=== PATIENT | male | born 1960 | race Caucasian/White ===

== ENCOUNTER 2016-06-03 11:34 | Emergency (ER) | payer BC, OTHER ==
--- NOTE | 2016-06-03 11:48 | ED ---
General Adult HPI - General Chief complaint: Chest Pain Stated complaint: CHEST PAIN Time Seen by Provider: 06/03/16 11:46 Source: patient, family, RN notes reviewed, old records reviewed Mode of arrival: wheelchair Limitations: no limitations - History of Present Illness Initial comments: This is a 48-year-old male ER for evaluation. Patient Preoperative for evaluation of chest pain. Patient had anterior chest pain is not severe while doing some activities morning at work. Patient does suffer from CAD with history of stent. No prior hospital recent hospital admissions for chest pain, rule out 5 AM patient was doing some work today and moving some objects and had anterior chest pain. Patient became a little short of breath but nothing significant. He was advised to see the medical nurse at his work, was then transferred to his family doctor's office and transferred to the emergency room. Patient states he is without chest pain at this time he did take nitro hours ago which did help and he has been chest pain-free since. Patient has no cough congestion or fever no travel history. - Related Data Home Medications Medication Instructions Recorded Confirmed Hydrocodone/Acetaminophen [[place] 1 tab PO Q4H PRN 09/06/14 06/03/16 10-325] Nitroglycerin Sl Tabs [Nitrostat] 0.4 mg SUBLINGUAL Q5M PRN 09/06/14 06/03/16 Atorvastatin [Lipitor] 80 mg PO DAILY 09/12/14 06/03/16 Aspirin EC [Ecotrin Low Dose] 81 mg PO DAILY 11/12/15 06/03/16 Butalb/APAP/Caff 50-325-40Mg 2 tab PO BID PRN 11/12/15 06/03/16 [Fioricet 50-325-40] Cyanocobalamin [Vitamin B-12] 500 mcg PO DAILY 11/12/15 06/03/16 Ferrous Sulfate [Iron (65 MG 325 mg PO DAILY 11/12/15 06/03/16 Elemental)] Cholecalciferol [Vitamin D3] 1,000 unit PO DAILY 02/24/16 06/03/16 predniSONE See Taper PO DIRECTED 02/24/16 06/03/16 Albuterol Sulfate [Proair Hfa] 1 - 2 puff INHALATION RT-Q6H PRN 06/03/16 Fluocinonide 0.05% [Fluocinonide] 1 applic TOPICAL BID 06/03/16 06/03/16 Levocetirizine Dihydrochloride 5 mg PO DAILY PRN 06/03/16 06/03/16 [Xyzal] Naproxen [Naprosyn] 500 mg PO TID PRN 06/03/16 06/03/16 Triamcinolone 0.1% Cream [Kenalog] 1 applic TOPICAL BID 06/03/16 06/03/16 diphenhydrAMINE [Benadryl] 25 mg PO BID PRN 06/03/16 06/03/16 Previous Rx's Medication Instructions Recorded Lisinopril [Zestril] 10 mg PO DAILY #30 tab 11/13/15 Allergies Allergy/AdvReac Type Severity Reaction Status Date / Time No Known Allergies Allergy Verified 11/12/15 13:52 Review of Systems ROS Statement: Those systems with pertinent positive or pertinent negative responses have been documented in the HPI. ROS Other: All systems not noted in ROS Statement are negative. Past Medical History Past Medical History: Coronary Artery Disease (CAD), Chest Pain / Angina, Heart Failure, COPD, Hearing Disorder / Deafness, Hyperlipidemia, Hypertension, Myocardial Infarction ([place]), Neurologic Disorder, Respiratory Disorder, Rheumatoid Arthritis (RA), Skin Disorder, Sleep Apnea/CPAP/BIPAP Additional Past Medical History / Comment(s): closed head injury , migraines, PSORIASIS, Last Myocardial Infarction Date:: 09/06/2014 History of Any Multi-Drug Resistant Organisms: None Reported Past Surgical History: Heart Catheterization With Stent Additional Past Surgical History / Comment(s): HEART CATH WITH STENT TO LAD ON 09/06/2014 and had previous heart cath and stent not sure which artery. Past Anesthesia/Blood Transfusion Reactions: No Reported Reaction Date of Last Stent Placement:: 09/06/2014 Past Psychological History: No Psychological Hx Reported Smoking Status: Never smoker Past Alcohol Use History: None Reported Additional Past Alcohol Use History / Comment(s): DENIES ALCOHOL USE Past Drug Use History: None Reported Additional Drug Use History / Comment(s): DENIES STREEET DRUGS, DOES CHEW CHEWING TOBACCO 1/2 can per day - Past Family History Brother(s) Family Medical History: Coronary Artery Disease (CAD), Myocardial Infarction ([place] ) Additional Family Medical History / Comment(s): HALF BROTHER HAD A [place] General Exam Limitations: no limitations General appearance: alert, in no apparent distress Head exam: Present: atraumatic, normocephalic, normal inspection Eye exam: Present: normal appearance, PERRL, EOMI. Absent: scleral icterus, conjunctival injection, periorbital swelling ENT exam: Present: normal exam, mucous membranes moist Neck exam: Present: normal inspection. Absent: tenderness, meningismus, lymphadenopathy Respiratory exam: Present: normal lung sounds bilaterally. Absent: respiratory distress, wheezes, rales, rhonchi, stridor Cardiovascular Exam: Present: regular rate, normal rhythm, normal heart sounds. Absent: systolic murmur, diastolic murmur, rubs, gallop, clicks GI/Abdominal exam: Present: soft, normal bowel sounds. Absent: distended, tenderness, guarding, rebound, rigid Extremities exam: Present: normal inspection, full ROM, normal capillary refill. Absent: tenderness, pedal edema, joint swelling, calf tenderness Back exam: Present: normal inspection Neurological exam: Present: alert, oriented X3, CN II-XII intact Psychiatric exam: Present: normal affect, normal mood Skin exam: Present: warm, dry, intact, normal color. Absent: rash Course Vital Signs 06/03/16 11:36 Temperature 98 F Pulse Rate 72 Respiratory 16 Rate Blood Pressure 146/70 - Reevaluation(s) Reevaluation #1: 06/03/16 12:51 The patient remains without chest pain Reevaluation #2: 06/03/16 12:51 Patient is defiantly apposed his stay in the hospital 06/03/16 12:51 EKG Findings - EKG Comments: EKG Findings:: EKG shows normal sinus rhythm rate of 65, FL 184, QRS 88, QTC 416 Medical Decision Making - Medical Decision Making 56 male here for evaluation of chest pain. Patient presents with chest pain today, he does have history of CAD and angina. Patient's chest pain is now resolved. Patient refuses to stay in the hospital for further cardiac care. Patient will be discharged home he does take [place] - Radiology Data Radiology results: report reviewed (Chest x-ray negative for acute disease), image reviewed Disposition Clinical Impression: CAD (coronary artery disease), Unstable angina pectoris, Stable angina Disposition: HOME SELF-CARE Condition: Good Instructions: Chest Pain (ED) Referrals: Cali Crain MD [Primary Care Provider] - 1-2 days
[2016-06-03 12:50] LABS: Basophils % (A) 0 %; CH 32.3; CHCM 34.4; Eosinophils # (A) 0.2 k/uL (0-0.7); Eosinophils % (A) 2 %; HCT 41.4 % (39.0-53.0); HDW 2.37; HGB 13.8 gm/dL (13.0-17.5); Luc # (Auto) 0.32; Luc % (Auto) 3; Lymphocytes # (A) 1.8 k/uL (1.0-4.8); Lymphocytes % (A) 19 %; MCH 31.4 pg (25.0-35.0); MCHC 33.3 g/dL (31.0-37.0); MCV 94.3 fL (80.0-100.0); Monocytes # (A) 0.7 k/uL (0-1.0); Monocytes % (A) 7 %; Neutrophils # (A) 6.7 k/uL (1.3-7.7); Neutrophils % (A) 68 %; RBC 4.39 m/uL (4.30-5.90); RDW 13.3 % (11.5-15.5); WBC 9.7 k/uL (3.8-10.6); WBC (Perox) 10.34
[2016-06-03 12:58] LABS: ALT 33 U/L (21-72); AST 20 U/L (17-59); Alkaline Phosphatase 74 U/L (38-126); Anion Gap 11 mmol/L; Blood Urea Nitrogen 25 mg/dL (9-20); Calcium 9.3 mg/dL (8.4-10.2); Carbon Dioxide 23 mmol/L (22-30); Chloride 107 mmol/L (98-107); Glucose 83 mg/dL (74-99); Magnesium 1.9 mg/dL (1.6-2.3); Non-African American GFR(MDRD) >60 (>60 ml/min/1.73 sqM); Potassium 4.3 mmol/L (3.5-5.1); Sodium 141 mmol/L (137-145); Total Bilirubin 0.9 mg/dL (0.2-1.3); Total Protein 6.4 g/dL (6.3-8.2)
[2016-06-03 13:03] LABS: Partial Thromboplastin Time 22.3 sec (22.0-30.0); Prothrombin Time 10.3 sec (9.0-12.0)
[2016-06-03 13:18] LABS: Creatine Kinase 60 U/L (55-170)
--- NOTE | 2016-06-03 13:31 | XR ---
EXAMINATION TYPE: XR chest 2V DATE OF EXAM: 06/03/2016 1:27 PM COMPARISON: 04/18/2016 HISTORY: Chest pain FINDINGS: The lungs are clear and there is no pneumothorax, pleural effusion, or focal pneumonia. Heart is en larged and there is hyperinflation. Degenerative change of the spine noted. IMPRESSION: 1. Cardiomegaly and findings suggestive of COPD.
[2016-06-03 13:32] LABS: Troponin I <0.012 ng/mL (0.000-0.034)
[2016-06-03 14:16] VITALS: BP 147/79; PULSE 60; RESP 18; TEMP 98
== END 2016-06-03 14:14 | disposition home or self-care (01) ==
LOC: EC 11:34
DX: I25.110 Atherosclerotic heart disease of native coronary artery with unstable angina pectoris (principal); I11.0 Hypertensive heart disease with heart failure; I50.9 Heart failure, unspecified; J44.9 Chronic obstructive pulmonary disease, unspecified; E78.5 Hyperlipidemia, unspecified; I25.2 Old myocardial infarction; M06.9 Rheumatoid arthritis, unspecified; G47.30 Sleep apnea, unspecified; H91.90 Unspecified hearing loss, unspecified ear; L40.9 Psoriasis, unspecified; F17.220 Nicotine dependence, chewing tobacco, uncomplicated; Z82.49 Family history of ischemic heart disease and other diseases of the circulatory system; Z79.52 Long term (current) use of systemic steroids; Z79.82 Long term (current) use of aspirin; Z79.899 Other long term (current) drug therapy
CPT/HCPCS: 36415; 71020; 80053; 82550; 82553; 83690; 83735; 83880; 84484; 85025; 85610; 85730; 93005; 99285

== ENCOUNTER → 2016-09-08 | Outpatient (CLI) | payer BC, OTHER ==
--- NOTE | 2016-09-08 19:57 | CT ---
EXAMINATION TYPE: CT brain w con DATE OF EXAM: 09/08/2016 7:35 PM COMPARISON: NONE HISTORY: Headaches x 17 yrs after closed head injury. CT DLP: 1090.40 mGycm Automated exposure control for dose reduction was used. CONTRAST: CT scan of the head is performed with IV Contrast, patient injected with 100 mL of Omnipaque 300. FINDINGS: There is mucosal thickening in the ethmoid and right maxillary sinus. There is some mild cerebral cor tical atrophy. There is no mass effect nor midline shift. There is no sign of intracranial hemorrhage . I see no pathologic enhancement. Sella turcica is normal. The calvarium is intact. IMPRESSION: Ethmoid and right maxillary sinusitis. Otherwise negative exam.
== END | disposition home or self-care (01) ==
LOC: RADCTMAIN 19:06
PROVIDERS: ATTEND Family Medicine
DX: J32.0 Chronic maxillary sinusitis (principal); J32.2 Chronic ethmoidal sinusitis
CPT/HCPCS: 70460; Q9967

== ENCOUNTER → 2017-01-09 | Outpatient (CLI) | payer BC, OTHER ==
[2017-01-06 11:48] VITALS: BMI 45.6
[2017-01-09 14:02] VITALS: BP 158/95; PULSE 77; RESP 18
--- NOTE | 2017-01-09 14:24 | P.HPIM ---
History of Present Illness H&P Date: 01/09/17 Chief Complaint: neck pain and headaches This is a 56-year-old patient referred by Drs. Lucia and Paras for chronic headaches and occipital nerve blocks. Patient has been taking medications from primary care physician including [place] 10/325 up to six times per day with some relief. Patient denies adverse drug effects from medications. Patient also denies new-onset weakness, bowel/bladder incontinence, or any other signs or symptoms of cauda equina syndrome. There are no signs of acute intoxication, and no indications of medication diversion or overuse. Patient notes that pain worsens significantly with standing and movement of the neck and improves with rest, ice, and medication. Patient has used several types of medications for pain, including NSAIDS, OPIOIDS ([place]), TRAMADOL. Patient HAS NOT had surgery. Patient HAS NOT had injections previously. Patient HAS NOT had physical therapy recently. In addition to above, 13-point review of systems is also negative for chest pain , shortness of breath, changes in vision, changes in hearing, new onset weakness , abdominal pain, diarrhea, extreme fatigue, malaise, fever, skin changes, homicidal or suicidal ideation, or bowel or bladder incontinence. 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 Neuro: CN II-XII grossly intact, muscle strength lower extremities PRESERVED Past Medical History Past Medical History: Coronary Artery Disease (CAD), Chest Pain / Angina, Heart Failure, COPD, Hearing Disorder / Deafness, Hyperlipidemia, Hypertension, Myocardial Infarction ([place]), Neurologic Disorder, Respiratory Disorder, Rheumatoid Arthritis ([place]), Skin Disorder, Sleep Apnea/CPAP/BIPAP Additional Past Medical History / Comment(s): FELL OFF HOUSE WITH CLOSED HEAD INJURY (1999), MIGRAINE HEADACHES, PSORIASIS, MULTIPLE CERVICAL SPURS, DDD., HAYFEVER, Last Myocardial Infarction Date:: 10/2015 History of Any Multi-Drug Resistant Organisms: None Reported Past Surgical History: Heart Catheterization, Heart Catheterization With Stent Additional Past Surgical History / Comment(s): HEART CATH WITH STENT TO LAD ON 09/06/2014 and had previous heart cath and stent not sure which artery., HEART CATH (10/2015)., NOSE SURGERY. Past Anesthesia/Blood Transfusion Reactions: No Reported Reaction, Motion Sickness Date of Last Stent Placement:: 09/06/2014 Past Psychological History: No Psychological Hx Reported Smoking Status: Never smoker Past Alcohol Use History: None Reported Additional Past Alcohol Use History / Comment(s): CHEWS TOBACCO SINCE 16 YEARS OLD Past Drug Use History: None Reported Additional Drug Use History / Comment(s): DENIES STREEET DRUGS, DOES CHEW CHEWING TOBACCO 1/2 can per day - Past Family History Mother Family Medical History: Unable to Obtain Father Family Medical History: Unable to Obtain Brother(s) Family Medical History: Coronary Artery Disease (CAD), Myocardial Infarction ([place] ) Additional Family Medical History / Comment(s): HALF BROTHER HAD A [place] Medications and Allergies Home Medications Medication Instructions Recorded Confirmed Type Hydrocodone/Acetaminophen [[place] 1 tab PO Q4H PRN 09/06/14 01/06/17 History 10-325] Nitroglycerin Sl Tabs [Nitrostat] 0.4 mg SUBLINGUAL Q5M PRN 09/06/14 01/06/17 History Atorvastatin [Lipitor] 80 mg PO DAILY 09/12/14 01/06/17 History Aspirin EC [Ecotrin Low Dose] 81 mg PO HS 11/12/15 01/06/17 History Butalb/APAP/Caff 50-325-40Mg 2 tab PO BID PRN 11/12/15 01/06/17 History [Fioricet 50-325-40] Lisinopril [Zestril] 10 mg PO DAILY #30 tab 11/13/15 01/06/17 Rx Albuterol Sulfate [Proair Hfa] 1 - 2 puff INHALATION Q6HR PRN 06/03/16 01/06/17 History Levocetirizine Dihydrochloride 5 mg PO DAILY PRN 06/03/16 01/06/17 History [Xyzal] Triamcinolone 0.1% Cream [Kenalog] 1 applic TOPICAL BID 06/03/16 01/06/17 History diphenhydrAMINE [Benadryl] 25 mg PO BID PRN 06/03/16 01/06/17 History Clopidogrel [Plavix] 75 mg PO HS 01/06/17 01/06/17 History Ibuprofen 800 mg PO TID PRN 01/06/17 01/06/17 History Metoprolol Tartrate [Lopressor] 25 mg PO BID 01/06/17 01/06/17 History Allergies Allergy/AdvReac Type Severity Reaction Status Date / Time No Known Allergies Allergy Verified 01/09/17 13:48 Results Comments: CT brain with contrast dated 09/08/2016 demonstrates ethmoid and right maxillary sinusitis and is otherwise negative. Assessment and Plan (1) Occipital neuralgia Status: Chronic (2) Chronic pain Status: Chronic (3) Cervical spondylosis Status: Chronic Plan: 1. Explanation: Opioid and psychological risk scores were reviewed. Diagnoses , prognoses, and multiple treatment options including but not limited to physical therapy, interventional therapies, adjuvant medical therapies, narcotic medication therapies, and surgery were discussed with the patient and all questions were answered to the patient's satisfaction. 2. Opioid agreement: no opioids prescribed today 3. Counseling: The patient was counseled extensively on SMOKING CESSATION, BODY MASS INDEX, EXERCISE. Specifically, the patient was instructed regarding the importance of smoking cessation, weight control, and exercise in the context of both chronic pain and overall health. 4. Procedures: bilateral occipital nerve block if patient can come off Plavix for five days per Dr. Nunes 5. Consultations: none 6. Investigations: MRI cervical spine without contrast to eval cervical facets 7. Medications: none 8. Disposition: f/u for procedure as scheduled PQRS measures: 1-Patient's medications are documented in the chart. 2-Tobacco use is positive/negative, counseling given 3-Patient has not had a pneumococcal vaccine. 4-Advanced care planning discussed, patient unable to give. 5-Opioid contract signed with the patient. 6-Pain positive, follow-up visit or procedure scheduled 7-Patient's blood pressure measured and documented, and patient will follow up with the primary care due to hypertension. 8-Patient's weight was measured, and body mass index ABOVE the normal limits, and counseling was done. Patient instructed to follow up with PCP. 9-Patient WAS NOT identified as an unhealthy alcohol user. Time with Patient: Greater than 30
== END ==
LOC: PNWHC3 13:27
PROVIDERS: ATTEND Anesthesiology
DX: M54.81 Occipital neuralgia (principal); M47.812 Spondylosis without myelopathy or radiculopathy, cervical region; Z79.84 Long term (current) use of oral hypoglycemic drugs; I25.10 Atherosclerotic heart disease of native coronary artery without angina pectoris; I10 Essential (primary) hypertension; I25.2 Old myocardial infarction; Z79.899 Other long term (current) drug therapy; Z79.82 Long term (current) use of aspirin; Z79.891 Long term (current) use of opiate analgesic
CPT/HCPCS: 99211

== ENCOUNTER → 2017-01-17 | Outpatient (CLI) | payer BC, OTHER | LOC: RADMRIMAIN 18:51 | PROVIDERS: ATTEND Anesthesiology | DX: Z53.9 Procedure and treatment not carried out, unspecified reason (principal) ==

== ENCOUNTER → 2017-07-04 | Outpatient (CLI) | payer BC, OTHER ==
--- NOTE | 2017-07-04 16:27 | XR ---
EXAMINATION TYPE: XR chest 2V DATE OF EXAM: 07/04/2017 COMPARISON: Prior chest x-ray 06/03/2016 HISTORY: Chest pain TECHNIQUE: Frontal and lateral views of the chest are obtained. FINDINGS: There is no focal air space opacity, pleural effusion, or pneumothorax seen. The cardiac silhouette size is stable, borderline enlarged. The osseous structures are intact. Small metallic f oreign body noted in the anterior chest wall superimposed over the Pulmonary window on the frontal exam. IMPRESSION: No acute cardiopulmonary process.
== END | disposition home or self-care (01) ==
LOC: RADXRMAIN 16:06
PROVIDERS: ATTEND Physician Assistant
DX: J20.9 Acute bronchitis, unspecified (principal)
CPT/HCPCS: 71046

== ENCOUNTER 2017-08-07 08:32 | Emergency (ER) | payer BC, OTHER ==
[2017-08-07 08:39] VITALS: RESP 18
[2017-08-07] MEDS ORDERED: IBUPROFEN 600 MG TAB PO STA (08:49)
--- NOTE | 2017-08-07 08:51 | ED ---
Lower Extremity Injury HPI - General Chief Complaint: Extremity Injury, Lower Stated Complaint: Foot injury Time Seen by Provider: 08/07/17 08:40 Source: patient, RN notes reviewed, old records reviewed Mode of arrival: wheelchair Limitations: no limitations - History of Present Illness Initial Comments: this is a 57-year-old male presents emergency department today chief complaint of right ankle pain and swelling. 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 He reports that he missed a step and his family got caught on the edge of the step. He reports that he rolled his right ankle and foot. He complains of pain when he was walking. Difficulty to bear weight. He states he's had no previous ankle or foot injuries. Denies any other injuries related to the fall. No head or neck injuries. No upper extremity injuries or back pain. Patient denies any peripheral paresthesias. - Related Data Home Medications Medication Instructions Recorded Confirmed Hydrocodone/Acetaminophen [[place] 10 mg PO Q4H PRN 09/06/14 08/07/17 10-325] Nitroglycerin Sl Tabs [Nitrostat] 0.4 mg SUBLINGUAL Q5M PRN 09/06/14 08/07/17 Atorvastatin [Lipitor] 80 mg PO DAILY 09/12/14 08/07/17 Aspirin EC [Ecotrin Low Dose] 81 mg PO HS 11/12/15 08/07/17 Butalb/APAP/Caff 50-325-40Mg 2 tab PO BID PRN 11/12/15 08/07/17 [Fioricet 50-325-40] Levocetirizine Dihydrochloride 5 mg PO DAILY PRN 06/03/16 08/07/17 [Xyzal] diphenhydrAMINE [Benadryl] 25 mg PO BID PRN 06/03/16 08/07/17 Clopidogrel [Plavix] 75 mg PO HS 01/06/17 08/07/17 Ibuprofen 800 mg PO TID PRN 01/06/17 08/07/17 Metoprolol Tartrate [Lopressor] 25 mg PO BID 01/06/17 08/07/17 Lisinopril [Zestril] 10 mg PO DAILY 01/09/17 08/07/17 hydrOXYzine HCL [Atarax] 25 mg PO TID PRN 02/01/17 08/07/17 Triamcinolone 0.1% Cream [Kenalog] 1 applicate TOPICAL BID 02/06/17 08/07/17 Naproxen 500 mg PO BID PRN 02/28/17 08/07/17 Previous Rx's Medication Instructions Recorded Ibuprofen [Motrin] 600 mg PO Q8HR PRN #20 tab 08/07/17 Allergies Allergy/AdvReac Type Severity Reaction Status Date / Time No Known Allergies Allergy Verified 08/07/17 09:23 Review of Systems ROS Statement: Those systems with pertinent positive or pertinent negative responses have been documented in the HPI. ROS Other: All systems not noted in ROS Statement are negative. Past Medical History Past Medical History: Coronary Artery Disease (CAD), Chest Pain / Angina, Heart Failure, COPD, Hearing Disorder / Deafness, Hyperlipidemia, Hypertension, Myocardial Infarction ([place]), Neurologic Disorder, Respiratory Disorder, Rheumatoid Arthritis ([place]), Skin Disorder, Sleep Apnea/CPAP/BIPAP Additional Past Medical History / Comment(s): FELL OFF HOUSE WITH CLOSED HEAD INJURY (1999), MIGRAINE HEADACHES, PSORIASIS, MULTIPLE CERVICAL SPURS, DDD., HAYFEVER, Last Myocardial Infarction Date:: 10/2015 History of Any Multi-Drug Resistant Organisms: None Reported Past Surgical History: Heart Catheterization, Heart Catheterization With Stent Additional Past Surgical History / Comment(s): HEART CATH WITH STENT TO LAD ON 09/06/2014 and had previous heart cath and stent not sure which artery., HEART CATH (10/2015)., NOSE SURGERY. , PAIN CLINIC PROCEDURES. Past Anesthesia/Blood Transfusion Reactions: No Reported Reaction, Motion Sickness Date of Last Stent Placement:: 09/06/2014 Past Psychological History: No Psychological Hx Reported Smoking Status: Never smoker Past Alcohol Use History: None Reported Past Drug Use History: None Reported - Past Family History Mother Family Medical History: No Reported History Father Family Medical History: No Reported History Brother(s) Family Medical History: Coronary Artery Disease (CAD), Myocardial Infarction ([place] ) Additional Family Medical History / Comment(s): HALF BROTHER HAD A [place] General Exam - General Exam Comments Initial Comments: this is a 57-year-old male presents emergency department today. He doesn't appear to be in any acute distress. Limitations: no limitations General appearance: alert, in no apparent distress Head exam: Present: atraumatic, normocephalic, normal inspection Eye exam: Present: normal appearance, PERRL, EOMI. Absent: scleral icterus, conjunctival injection, periorbital swelling Respiratory exam: Present: normal lung sounds bilaterally. Absent: respiratory distress, wheezes, rales, rhonchi, stridor Cardiovascular Exam: Present: regular rate, normal rhythm, normal heart sounds. Absent: systolic murmur, diastolic murmur, rubs, gallop, clicks Extremities exam: Present: normal capillary refill. Absent: tenderness, pedal edema, joint swelling, calf tenderness Right Lower Leg exam: Present: normal inspection, full ROM Ankle exam: Present: tenderness, swelling (patient reports tenderness and swelling over the lateral malleolus.). Absent: normal inspection Foot/Toe exam: Present: normal inspection, full ROM, tenderness (plan tenderness over the heel.) Neurovascular tendon exam: Present: no vascular compromise Gait: observed and limited by pain Back exam: Present: normal inspection Neurological exam: Present: alert, oriented X3, CN II-XII intact Psychiatric exam: Present: normal affect, normal mood Course Vital Signs 08/07/17 08:36 Temperature 97.0 F L Pulse Rate 91 Respiratory 18 Rate Blood Pressure 139/67 O2 Sat by Pulse 98 Oximetry Procedures - Orthopedic Splinting/Casting Injury #1 Side: right Lower Extremity Injury Location: short leg Lower Extremity Immobilizer: posterior splint Other Orthopedic Equipment: crutches Medical Decision Making - Medical Decision Making 57-year-old sensory exam and chief complaint of right ankle pain and swelling. 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 Patient does have some tenderness and swelling over the lateral malleolus. Ice pack was applied and he'll receiving x-rays.patient's x-rays of the foot shows a questionable lucency over the calcaneus. Recommended computed tomography scan. There is no fracture noted in the ankle. Patient for this. We proceeded with computed tomography scan. CT shows lucency along the inferior calcaneus. Fracture would be difficult to exclude. This is an unusual site of the fracture given his mechanism of injury. Recommend follow-up. Patient will be placed on crutches and given a posterior splint. Advised follow-up with orthopedic. Will be discharged with anti-inflammatory medicine and pain medicine. Discussed rest, ice, and elevate the extremity. All questions were answered and return parameters were discussed. - Radiology Data Radiology results: report reviewed CT foot: Lucency along the inferior canthus confirm. Fractured be difficult to exclude although severe unusual site for fracture. Given patient's mechanism of injury. Follow-up form process. Asked reaction. MRI may be benefit has indicated. sutures the foot and ankle were completed.Linear lucency involving the inferior margin of the anterior calcaneus. Correlate for tenderness to exclude a hairline fracture. Possible tiny foreign body in the plantar surface of the foot near the head of the tarsals. Severe arthropathy noted. There is no definite acute fracture dislocation of the ankle. Symptoms persist follow-up study in 7-10 days Disposition Clinical Impression: Right ankle sprain, Right calcaneal fracture Disposition: HOME SELF-CARE Condition: Good Instructions: Ankle Sprain (ED) Additional Instructions: patient is remain in the splint. Rest, ice, and elevate extremity. Follow-up with sales and training specialist within the next 1-2 days. Ambulate with crutches. Take at home pain medicine and anti-inflammatory medicine. Prescriptions: Ibuprofen [Motrin] 600 mg PO Q8HR PRN #20 tab PRN Reason: Pain Referrals: Cali Crain MD [Primary Care Provider] - 1-2 days Eliu Campos MD [STAFF PHYSICIAN] - 1-2 days Time of Disposition: 10:38
--- NOTE | 2017-08-07 09:14 | XR ---
EXAMINATION TYPE: XR ankle complete RT DATE OF EXAM: 08/07/2017 COMPARISON: NONE HISTORY: Pain FINDINGS: Three views of the ankle demonstrate the ankle mortise to be intact and symmetric. The joint spaces are preserved. The osseous structures are intact. Diffuse soft tissue edema noted. Hypertrophic sheela nge involving the malleoli. Small spurs noted. Calcaneal spurs noted. Arthropathy of the tarsometatar kade junction. IMPRESSION: 1. No definite acute fracture or dislocation, if symptoms persist follow-up study in 7 to 10 days wou ld be suggested.
--- NOTE | 2017-08-07 09:16 | XR ---
EXAMINATION TYPE: XR foot complete RT DATE OF EXAM: 08/07/2017 COMPARISON: NONE HISTORY: Pain TECHNIQUE: Three views are submitted. FINDINGS: Hallux valgus deformity of the first digit with arthropathy and hypertrophic change involving the fir st MTP. Arthropathy of the PIP joints of all digits. There is significant arthropathy of the tarsomet atarsal junction which can be associated with gout. Calcaneal spurs noted. There is a thin radiopaque density or near the metatarsal head along the plant ar surface could be related to chronic foreign body. A linear lucency involving the inferior cortex o f the calcaneus. IMPRESSION: 1. Linear lucency involving the inferior margin of the anterior calcaneus. Correlate with point tende rness to exclude hairline fracture. Consider follow up CT scan. 2. Possible tiny foreign body along the plantar surface of the foot near the head of the metatarsals. 3. Severe arthropathy.
--- NOTE | 2017-08-07 10:28 | CT ---
EXAMINATION TYPE: CT foot RT wo con DATE OF EXAM: 08/07/2017 COMPARISON: Plain film same date HISTORY: Missed a step, twisted foot and ankle, trauma and pain CT DLP: 201.8 mGycm Automated exposure control for dose reduction was used. Helical acquisition obtained through the [employer] t foot and ankle. 3-dimensional reconstructions performed on an alternate workstation. FINDINGS: There is motion on the exam which could limit the evaluation. Extensive arthropathy changes are noted as on plain film. There is no evident dislocation. Enthesophy te present at the insertion of the Achilles tendon. There is a plantar calcaneal spur present. Lucenc y identified along the anterior inferior calcaneus is confirmed. No other evident fracture. Calcifica tion within the soft tissues corresponds to the finding noted on the lateral exam at the level of the head and metatarsals shows a benign appearance. IMPRESSION: LUCENCY ALONG THE INFERIOR CALCANEUS IS CONFIRMED, AND FRACTURE WOULD BE DIFFICULT TO EXCLUDE ALTHOUG H THIS WOULD BE AN UNUSUAL SITE OF FRACTURE GIVEN PATIENT'S MECHANISM OF INJURY. FOLLOW-UP COULD BE P ERFORMED TO ASSESS FOR PERIOSTEAL REACTION, MRI MAY BE OF BENEFIT INDICATED.
[2017-08-07 11:05] VITALS: BP 153/67; PULSE 69; TEMP 98
== END 2017-08-07 11:02 | disposition home or self-care (01) ==
LOC: EC 08:32
DX: S92.021A Displaced fracture of anterior process of right calcaneus, initial encounter for closed fracture (principal); S93.401A Sprain of unspecified ligament of right ankle, initial encounter; I25.119 Atherosclerotic heart disease of native coronary artery with unspecified angina pectoris; I11.0 Hypertensive heart disease with heart failure; I50.9 Heart failure, unspecified; J44.9 Chronic obstructive pulmonary disease, unspecified; E78.5 Hyperlipidemia, unspecified; I25.2 Old myocardial infarction; G47.30 Sleep apnea, unspecified; Z99.89 Dependence on other enabling machines and devices; Z79.82 Long term (current) use of aspirin; Z79.01 Long term (current) use of anticoagulants; Z79.899 Other long term (current) drug therapy; W17.89XA Other fall from one level to another, initial encounter; Y99.0 Civilian activity done for income or pay
CPT/HCPCS: 29515; 99284

== ENCOUNTER → 2018-01-18 | Outpatient (CLI) | payer BC, OTHER ==
--- NOTE | 2018-01-18 17:54 | XR ---
EXAMINATION TYPE: XR chest 2V DATE OF EXAM: 01/18/2018 COMPARISON: 07/04/2017 HISTORY: Cough and congestion TECHNIQUE: Frontal and lateral views of the chest are obtained. FINDINGS: There is some coarsening of interstitial markings. Heart size is normal. There is no conso lidation or pleural fluid. Bony thorax is intact. IMPRESSION: Pulmonary interstitial infiltrates could relate to developing pulmonary fibrosis. This i s slightly worse than last exam. Reduced lung volumes. No heart failure.
== END ==
LOC: RADXRMAIN 16:32
PROVIDERS: ATTEND Physician Assistant
DX: R91.8 Other nonspecific abnormal finding of lung field (principal)
CPT/HCPCS: 71046

== ENCOUNTER → 2018-02-07 | Outpatient (CLI) | payer BC, OTHER ==
[2018-02-07 13:53] LABS: Basophils # (A) 0.1 k/uL (0-0.2); Basophils % (A) 1 %; Eosinophils # (A) 0.7 k/uL (0-0.7); Eosinophils % (A) 9 %; HCT 41.2 % (39.0-53.0); HGB 13.8 gm/dL (13.0-17.5); Lymphocytes % (A) 27 %; MCH 32.6 pg (25.0-35.0); MCHC 33.5 g/dL (31.0-37.0); MCV 97.4 fL (80.0-100.0); Mean Platelet Volume 6.4; Monocytes # (A) 0.5 k/uL (0-1.0); Monocytes % (A) 7 %; Neutrophils % (A) 54 %; Platelet Count 188 k/uL (150-450); RBC 4.23 m/uL (4.30-5.90); RDW 14.9 % (11.5-15.5); WBC 7.4 k/uL (3.8-10.6)
[2018-02-07 14:31] LABS: ALT 29 U/L (21-72); AST 28 U/L (17-59)
== END | disposition home or self-care (01) ==
LOC: LABWHC1 12:50
PROVIDERS: ATTEND Dermatology
DX: L40.0 Psoriasis vulgaris (principal)
CPT/HCPCS: 36415; 84450; 84460; 85025

== ENCOUNTER → 2018-02-27 | Outpatient (CLI) | payer BC, OTHER ==
--- NOTE | 2018-02-27 14:51 | CT ---
EXAMINATION TYPE: CT chest wo con DATE OF EXAM: 02/27/2018 COMPARISON: HISTORY: Interstitial lung disease CT DLP: 778.[address] of the chest was performed with lung and mediastinal window settings submitted. The la ck of contrast limits evaluation of the vascular, mediastinal and parenchymal structures including th e upper abdomen. LUNGS: There is scattered subpleural fibrosis noted greatest at the lung bases. There is mild pleural thickening. Peribronchial thickening noted as well as lower lobe bronchiectasis mild to moderate in degree. No evidence for pulmonary nodule or mass. No focal infiltrate or volume loss. MEDIASTINUM/LUDA: Thoracic aorta is of normal caliber with limited evaluation given lack of contrast . The heart is not enlarged. No evidence for mediastinal mass. Calcified mediastinal lymph nodes s uggesting remote granulomatous disease. No lymph nodes greater than 1cm. UPPER ABDOMEN: No significant abnormality is seen. OTHER: No significant other abnormality. IMPRESSION: 1. Subpleural fibrosis ,bronchial wall thickening and bronchiectasis.
== END | disposition home or self-care (01) ==
LOC: RADCTMAIN 13:39
PROVIDERS: ATTEND Internal Medicine Critical Care Medicine
DX: J84.10 Pulmonary fibrosis, unspecified (principal); J47.9 Bronchiectasis, uncomplicated; J98.09 Other diseases of bronchus, not elsewhere classified
CPT/HCPCS: 71250

== ENCOUNTER 2018-03-05 09:09 | Emergency (ER) | payer BC, OTHER ==
[2018-03-05] MEDS ORDERED: MORPHINE SULFATE 2 MG/ML SYRINGE IVP STA (09:31)
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
[2018-03-05 09:40] VITALS: RESP 18
[2018-03-05 09:59] LABS: Basophils % (A) 0 %; Eosinophils # (A) 0.7 k/uL (0-0.7); Eosinophils % (A) 8 %; HCT 38.6 % (39.0-53.0); Lymphocytes # (A) 1.7 k/uL (1.0-4.8); Lymphocytes % (A) 21 %; MCH 33.3 pg (25.0-35.0); MCHC 33.8 g/dL (31.0-37.0); MCV 98.4 fL (80.0-100.0); Mean Platelet Volume 6.2; Monocytes # (A) 0.4 k/uL (0-1.0); Monocytes % (A) 5 %; Neutrophils # (A) 5.1 k/uL (1.3-7.7); Neutrophils % (A) 64 %; Platelet Count 213 k/uL (150-450); RBC 3.92 m/uL (4.30-5.90); RDW 14.9 % (11.5-15.5); WBC 8.1 k/uL (3.8-10.6)
[2018-03-05 10:04] LABS: Partial Thromboplastin Time 24.1 sec (22.0-30.0)
[2018-03-05 10:06] LABS: ALT 32 U/L (21-72); AST 27 U/L (17-59); Albumin 3.6 g/dL (3.5-5.0); Alkaline Phosphatase 95 U/L (38-126); Anion Gap 9 mmol/L; Blood Urea Nitrogen 18 mg/dL (9-20); Calcium 9.2 mg/dL (8.4-10.2); Carbon Dioxide 23 mmol/L (22-30); Chloride 107 mmol/L (98-107); Glucose 87 mg/dL (74-99); Lipase 56 U/L (23-300); Magnesium 1.9 mg/dL (1.6-2.3); Potassium 4.7 mmol/L (3.5-5.1); Sodium 139 mmol/L (137-145); Total Bilirubin 0.5 mg/dL (0.2-1.3); Total Protein 6.6 g/dL (6.3-8.2)
--- NOTE | 2018-03-05 10:20 | XR ---
EXAMINATION TYPE: XR chest 2V DATE OF EXAM: 03/05/2018 COMPARISON: NONE HISTORY: Chest pain TECHNIQUE: Frontal and lateral views of the chest are obtained. FINDINGS: There is no focal air space opacity, pleural effusion, or pneumothorax seen. The cardiac silhouette size is stable accounting for differences in technique. The osseous structures are intac t. Metallic foreign body within the subcutaneous tissues of the upper left chest anteriorly is stable . There are overlying cardiac leads. Technique is apical lordotic. There is interstitial lung disease . IMPRESSION: No acute cardiopulmonary process.
[2018-03-05 10:24] LABS: Creatine Kinase 73 U/L (55-170)
[2018-03-05 10:36] LABS: Creatine Kinase MB 0.8 ng/mL (0.0-2.4); Troponin I <0.012 ng/mL (0.000-0.034)
[2018-03-05 11:13] VITALS: BP 119/65; PULSE 52; TEMP 98
== END 2018-03-05 11:12 | disposition home or self-care (01) ==
LOC: EC 09:09
DX: R07.9 Chest pain, unspecified (principal); M25.512 Pain in left shoulder; I25.119 Atherosclerotic heart disease of native coronary artery with unspecified angina pectoris; I11.0 Hypertensive heart disease with heart failure; I50.9 Heart failure, unspecified; J44.9 Chronic obstructive pulmonary disease, unspecified; E78.5 Hyperlipidemia, unspecified; I25.2 Old myocardial infarction; L40.9 Psoriasis, unspecified; M06.9 Rheumatoid arthritis, unspecified; G47.30 Sleep apnea, unspecified; Z99.89 Dependence on other enabling machines and devices; Z79.82 Long term (current) use of aspirin; Z79.01 Long term (current) use of anticoagulants; Z79.899 Other long term (current) drug therapy; Z91.048 Other nonmedicinal substance allergy status; Z95.5 Presence of coronary angioplasty implant and graft; Z82.49 Family history of ischemic heart disease and other diseases of the circulatory system
CPT/HCPCS: 36415; 93005; 83880; 80053; 82550; 82553; 83690; 83735; 84484; 85025; 85610; 85730; 71046; 99285; 96374; J2270

== ENCOUNTER → 2018-03-06 | Outpatient (CLI) | payer BC, OTHER ==
[2018-03-06 21:38] LABS: Rheumatoid Factor 10 IU/mL (0-15)
== END | disposition home or self-care (01) ==
LOC: LABWHC1 12:25
PROVIDERS: ATTEND Internal Medicine Critical Care Medicine
DX: J84.9 Interstitial pulmonary disease, unspecified (principal)
CPT/HCPCS: 36415; 85652; 86038; 86140; 86431

== ENCOUNTER 2018-03-14 08:03 | Day surgery (SDC) | payer BC, OTHER ==
[~2018-03-14 08:03] MED LIST: ALPRAZolam 0.25 MG TAB PO PRN; ALPRAZolam 0.5 MG TAB PO PRN; ASPIRIN 325 MG TAB PO STA; ATORVASTATIN 80 MG TAB PO ONE; NITROGLYCERIN SL TABS 0.4 MG TAB SUBLINGUAL PRN; SODIUM CHLORIDE 0.9% 1,000 ML in EMPTY BAG 1 BAG IV ONE
[2018-03-14] MEDS ORDERED: LIDOCAINE 1% INJ 10MG/ML (20 ML MDV) ONE (09:12)
[2018-03-14] MEDS ORDERED: fentaNYL (PF) 50 MCG/ML 2 ML AMP ONE (09:25)
[2018-03-14] MEDS ORDERED: MIDAZOLAM 2 MG/2 ML VIAL ONE (09:25)
[2018-03-14] MEDS ORDERED: MIDAZOLAM 2 MG/2 ML VIAL IVP ONE (09:30)
[2018-03-14] MEDS ORDERED: fentaNYL (PF) 50 MCG/ML 2 ML AMP IVP ONE (09:30)
[2018-03-14] MEDS ORDERED: LIDOCAINE 1% INJ 10MG/ML (20 ML MDV) SQ ONE (09:36)
[2018-03-14] MEDS ORDERED: IOPAMIDOL-370 125ML BTL INJ ONE (09:55)
[2018-03-14] MEDS ORDERED: HEPARIN SODIUM 1,000 UN/ML (10ML VL) ONE (09:59)
--- NOTE | 2018-03-14 10:23 | CC ---
CARDIAC CATHETERIZATION REPORT Mr. Cordero is a 58-year-old gentleman who has a known history of coronary artery disease. This patient was recently in the emergency room with a prolonged episode of chest pain. EKG did not show any changes. The history was suggestive of unstable angina. In view of the patient's known history of coronary artery disease, patient was advised cardiac catheterization for definitive diagnosis. PROCEDURE: The right groin was prepped and draped in the usual manner and the skin was infiltrated with 2% Xylocaine. The right femoral artery was entered using Seldinger technique. A #6- Kiswahili sheath was placed in. Selective coronary angiography was then performed in multiple projections and the left ventricular pressures were obtained. HEMODYNAMICS: Left ventricular end-diastolic pressure is 16 to 20 mmHg prior to angiography. No gradient is noted across the aortic valve. SEDATION: Moderate sedation was used. Total sedation time was 28 minutes. SELECTIVE CORONARY ANGIOGRAPHY: Left main coronary artery is normal and patent. LAD is a good caliber blood vessel and it is normal. Circumflex coronary artery is a good caliber blood vessel and mild irregularity is noted. There is a fair size intermediate branch which has got ostial stenosis of about 80% to 85%. Right coronary artery is a good caliber blood vessel, is dominant in distribution. The origin of the PDA branch has a 50% to 60% stenosis, which is unchanged from before. RECOMMENDATIONS: We will review the films with Dr. Mayorga. The ostial stenosis of the intermediate branch is a high risk because it is right near the origin of the left main. In view of that, we will review the films with Dr. Mayorga and decide whether interventional procedure or medical treatment. MMODL / IJN: [id number] /
[2018-03-14] MEDS ORDERED: IV FLUID CONTINUATION 1,000 ML IV ONE (11:59)
[2018-03-14] MEDS ORDERED: MIDAZOLAM 2 MG/2 ML VIAL IV ONE (12:25)
[2018-03-14] MEDS: fentaNYL (PF) 50 MCG/ML 2 ML AMP IV ONE ×2 (12:36→13:16)
[2018-03-14] MEDS ORDERED: BIVALIRUDIN BOLUS 250 MG/50 ML IV ONE (12:41)
[2018-03-14] MEDS ORDERED: BIVALIRUDIN 250 MG in SODIUM CHLORIDE 0.9% 50 ML IV ONE (12:42)
[2018-03-14] MEDS ORDERED: IOPAMIDOL-370 50ML BTL INJ ONE (12:59)
[2018-03-14] MEDS ORDERED: IOPAMIDOL-370 100ML BTL INJ ONE (12:59)
[2018-03-14] MEDS ORDERED: CLOPIDOGREL 75 MG TAB PO ONE (12:59)
[2018-03-14] MEDS ORDERED: diphenhydrAMINE 25 MG CAP PO PRN (13:12)
[2018-03-14] MEDS ORDERED: NAPROXEN 250 MG TAB PO PRN (13:12)
[2018-03-14] MEDS ORDERED: IBUPROFEN 800 MG TAB PO PRN (13:12)
[2018-03-14] MEDS ORDERED: LORATADINE 10 MG TAB PO PRN (13:12)
[2018-03-14] MEDS ORDERED: hydrOXYzine HCL 25 MG TAB PO PRN (13:12)
[2018-03-14] MEDS ORDERED: NITROGLYCERIN SL TABS 0.4 MG TAB SUBLINGUAL PRN ×2 (13:12→13:13)
[2018-03-14] MEDS ORDERED: BUTALB/APAP/CAFF 50-325-40MG TAB PO PRN (13:12)
[2018-03-14] MEDS ORDERED: ATROPINE SULFATE 0.1 MG/ML 10ML SYRINGE IV PRN (13:13)
[2018-03-14] MEDS ORDERED: ZOLPIDEM 5 MG TAB PO PRN (13:13)
[2018-03-14] MEDS ORDERED: MAG HYDROX/AL HYDROX/SIMETH 30 ML CUP PO PRN (13:13)
[2018-03-14] MEDS ORDERED: RX INFO: IV CONTRAST WAS GIVEN 1 EACH MISC MISCELLANE PRN (13:13)
--- NOTE | 2018-03-14 13:41 | LTR ---
March 14, 2018 Re: Andres Cordero Dear Dr. Crain: Mr. Andres Cordero underwent successful stenting of the ostial ramus intermedius with good angiographic results and without any complication. I want to thank you for allowing us to participate in his care and please do not hesitate to call if you have any questions or concern. Sincerely, MD GUNNAR Culver / LILLI: [id number] /
[2018-03-14] MEDS ORDERED: FOLIC ACID 1 MG TAB PO SCH (15:30)
[2018-03-14] MEDS ORDERED: HYDROmorphone 1 MG/ML 1 ML SYRINGE IVP PRN (16:21)
[2018-03-14] MEDS ORDERED: HYDROmorphone 1 MG/ML 1 ML SYRINGE IVP STA (16:21)
[2018-03-14 17:01] VITALS: BMI 45.3
[2018-03-14 18:17] VITALS: RESP 18
[2018-03-14] MEDS: METOPROLOL TARTRATE 25 MG TAB PO SCH (20:26)
[2018-03-14] MEDS: CYCLOBENZAPRINE 10 MG TAB PO SCH (20:26)
[2018-03-14] MEDS ORDERED: ASPIRIN 81 MG PO SCH (21:00)
[2018-03-14] MEDS: TRIAMCINOLONE 0.1% CREAM 80 GM TUBE TOPICAL SCH (21:03)
[2018-03-15 06:22] LABS: Basophils % (A) 1 %; Eosinophils # (A) 0.5 k/uL (0-0.7); Eosinophils % (A) 8 %; HCT 38.5 % (39.0-53.0); HGB 12.7 gm/dL (13.0-17.5); Lymphocytes # (A) 1.4 k/uL (1.0-4.8); Lymphocytes % (A) 19 %; MCH 32.7 pg (25.0-35.0); MCHC 33.1 g/dL (31.0-37.0); MCV 98.6 fL (80.0-100.0); Mean Platelet Volume 6.2; Monocytes # (A) 0.6 k/uL (0-1.0); Monocytes % (A) 9 %; Neutrophils # (A) 4.2 k/uL (1.3-7.7); Neutrophils % (A) 61 %; Platelet Count 179 k/uL (150-450); RDW 14.2 % (11.5-15.5)
[2018-03-15 06:39] LABS: Calcium 9.1 mg/dL (8.4-10.2); Potassium 4.8 mmol/L (3.5-5.1)
[2018-03-15] MEDS ORDERED: ATORVASTATIN 80 MG TAB PO SCH (09:00)
[2018-03-15] MEDS ORDERED: CLOPIDOGREL 75 MG TAB PO SCH (09:00)
[2018-03-15] MEDS ORDERED: LISINOPRIL 10 MG TAB PO SCH (09:00)
--- NOTE | 2018-03-15 09:18 | PTCA ---
PERCUTANEOUSTRANS CORORONARY ANGIOGRAPHY DATE OF SERVICE: March 14, 2018 PERFORMING PHYSICIAN: Alan Mayorga MD, saw repairer. PROCEDURE PERFORMED: Successful stenting of the ostial ramus intermedius coronary artery using 2.5 x 15 mm Xience MARIOLA, which was postdilated using 2.75 mm balloon with good angiographic results. INDICATION: This is a pleasant 58-year-old male patient who sees Dr. Nunes as an outpatient with known history of coronary artery disease who was experiencing chest discomfort and underwent a heart catheterization by Dr. Nunes earlier today and that revealed critical disease involving the ostial ramus intermedius. APPROACH: Right common femoral artery. COMPLICATION: None. LEVEL OF SEDATION: Moderate with sedation length of 38 minutes. PROCEDURE DESCRIPTION: After diagnostic heart catheterization was performed by Dr. Michael Nunes and after reviewing the angiogram, we decided to pursue intervention on the ramus intermedius with anticoagulation was initiated using Angiomax. Subsequently I did wire the ramus using a Whisper wire. I did balloon the ramus using 2.5 x 12 mm balloon before I deployed 2.5 x 15 mm Xience MARIOLA where the stent was positioned under fluoroscopy guidance and deployed under 14 atmospheres for 20 seconds. I post dilated the stent using 2.75 mm NC balloon. The following angiogram showed good angiographic results and the procedure was completed without any complication. POSTPROCEDURE MANAGEMENT: 1. Dual anti-platelet therapy. 2. Risk factors modifications. 3. Follow up with the patient. MMODL / IJN: [id number] /
[2018-03-15] MEDS: METOPROLOL TARTRATE 25 MG TAB PO SCH (09:24)
[2018-03-15] MEDS: CYCLOBENZAPRINE 10 MG TAB PO SCH (09:24)
[2018-03-15] MEDS: TRIAMCINOLONE 0.1% CREAM 80 GM TUBE TOPICAL SCH (09:25)
[2018-03-15 09:34] VITALS: BP 135/77; PULSE 60; TEMP 97.7
[2018-03-15] MEDS ORDERED: METHOTREXATE SODIUM 2.5 MG TAB PO SCH (21:00)
== END 2018-03-15 13:00 | disposition home or self-care (01) ==
LOC: CATHCVL 08:03 → 3SCARD 15:22 → CATHCVL 03-15 13:00
PROVIDERS: ATTEND Internal Medicine Cardiovascular Disease
DX: I25.110 Atherosclerotic heart disease of native coronary artery with unstable angina pectoris (principal); I21.4 Non-ST elevation (NSTEMI) myocardial infarction; I10 Essential (primary) hypertension; E78.2 Mixed hyperlipidemia; Z98.61 Coronary angioplasty status; Z79.02 Long term (current) use of antithrombotics/antiplatelets; Z79.899 Other long term (current) drug therapy
CPT/HCPCS: 93458; 80048; 85025; C9600; C1769 ×4; C1887; C1725 ×2; C1894; C1874; J2250; J2001; J3010; J1170; J0583; Q9967 ×3

== ENCOUNTER → 2018-05-03 | Outpatient (CLI) | payer BC, OTHER ==
[2018-05-03 15:49] LABS: Basophils # (A) 0.1 k/uL (0-0.2); Basophils % (A) 1 %; Eosinophils # (A) 0.6 k/uL (0-0.7); Eosinophils % (A) 7 %; HCT 40.3 % (39.0-53.0); HGB 12.9 gm/dL (13.0-17.5); Lymphocytes # (A) 2.1 k/uL (1.0-4.8); Lymphocytes % (A) 23 %; MCH 31.7 pg (25.0-35.0); MCV 99.1 fL (80.0-100.0); Mean Platelet Volume 6.4; Monocytes # (A) 0.8 k/uL (0-1.0); Monocytes % (A) 9 %; Neutrophils % (A) 56 %; Platelet Count 217 k/uL (150-450); RBC 4.07 m/uL (4.30-5.90); RDW 13.8 % (11.5-15.5)
[2018-05-03 15:58] LABS: INR 0.9 (<1.2); Partial Thromboplastin Time 25.1 sec (22.0-30.0); Prothrombin Time 9.8 sec (9.0-12.0)
[2018-05-03 16:02] LABS: Magnesium 2.2 mg/dL (1.6-2.3); Potassium 4.7 mmol/L (3.5-5.1)
== END ==
LOC: LABPAT 14:27
PROVIDERS: ATTEND Thoracic Surgery (Cardiothoracic Vascular Surgery)
DX: Z01.812 Encounter for preprocedural laboratory examination (principal)
CPT/HCPCS: 36415; 80051; 82565; 82947; 83735; 84520; 85025; 85610; 85730

== ENCOUNTER 2018-05-10 08:25 | Inpatient (IN) | payer BC, OTHER ==
[2018-05-04 14:06] VITALS: BMI 46.3
[~2018-05-10 08:25] MED LIST changes: -ALPRAZolam 0.25 MG TAB PO PRN; -ALPRAZolam 0.5 MG TAB PO PRN; -ASPIRIN 325 MG TAB PO STA; -ATORVASTATIN 80 MG TAB PO ONE; +DEXAMETHASONE SOD PHOSPHATE 10 MG/ML 1 ML VIAL IV ONE; +LACTATED RINGERS 1,000 ML IV SCH; +LIDOCAINE 1% 20 ML VIAL (10MG/ML) FOR IV START INTRADERMA PRN; -NITROGLYCERIN SL TABS 0.4 MG TAB SUBLINGUAL PRN; +ONDANSETRON 4 MG/2 ML VIAL IVP ONE; -SODIUM CHLORIDE 0.9% 1,000 ML in EMPTY BAG 1 BAG IV ONE
[2018-05-10] MEDS ORDERED: MIDAZOLAM 2 MG/2 ML VIAL IVP ONE ×2 (09:23)
[2018-05-10] MEDS: fentaNYL (PF) 50 MCG/ML 2 ML AMP IVP ONE ×3 (09:24→14:44)
[2018-05-10] MEDS ORDERED: fentaNYL (PF) 50 MCG/ML 2 ML AMP IVP ONE (09:28)
[2018-05-10] MEDS ORDERED: ePHEDrine SULFATE/0.9% NACL/PF 50 MG/5 ML SYRINGE IV ONE (10:01)
[2018-05-10] MEDS ORDERED: ROCURONIUM BROMIDE 10 MG/ML 10 ML VIAL IV ONE (10:01)
[2018-05-10] MEDS ORDERED: NEOSTIGMINE 1 MG/ML 10 ML VIAL ONE (10:01)
[2018-05-10] MEDS ORDERED: PROPOFOL 10 MG/ML 20 ML VIAL IV ONE (10:01)
[2018-05-10] MEDS ORDERED: SUCCINYLCHOLINE CHLORIDE VIAL 200 MG/10 ML VIAL IV ONE (10:01)
[2018-05-10] MEDS ORDERED: GLYCOPYRROLATE 0.2 MG/ML 2 ML VIAL ONE (10:01)
[2018-05-10] MEDS ORDERED: HYDROmorphone (PF) 1 MG/ML ONE (10:01)
[2018-05-10] MEDS ORDERED: SODIUM CHLORIDE 0.9% (PF) 10 ML VIAL ONE (10:01)
[2018-05-10] MEDS ORDERED: fentaNYL (PF) 50 MCG/ML 2 ML AMP ONE (10:01)
[2018-05-10] MEDS ORDERED: MIDAZOLAM 2 MG/2 ML VIAL ONE (10:01)
[2018-05-10] MEDS ORDERED: BUPIVACAINE (PF) 0.5% 30 ML VIAL SQ ONE (10:50)
[2018-05-10] MEDS ORDERED: hydrOXYzine HCL 25 MG TAB PO PRN (11:19)
[2018-05-10] MEDS ORDERED: LORATADINE 10 MG TAB PO PRN (11:19)
[2018-05-10] MEDS ORDERED: BUTALB/APAP/CAFF 50-325-40MG TAB PO PRN (11:19)
[2018-05-10] MEDS ORDERED: NITROGLYCERIN SL TABS 0.4 MG TAB SUBLINGUAL PRN (11:19)
--- NOTE | 2018-05-10 11:24 | P.OP ---
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 Computed tomography scan of the chest shows bilateral infiltrates consistent with fibrosis. Lung biopsy was requested by Dr. Guerrero. Operative Findings: Lung was grossly normal in appearance Description of Procedure: The patient was brought to the operating room, placed supine on the operating table, anesthetized and intubated with a double-lumen endotracheal tube. The tube was positioned with fiberoptic bronchoscopy. No endobronchial lesions were noted. The tube was secured and the patient turned in the right lateral decubitus position. The left chest was sterilely prepared and draped. 3 one- inch incisions were made in the left lower chest. Through one of the video thoracoscope was introduced. The chest cavity was explored. No abnormalities were noted. Based on the CAT scan findings, generous biopsies were obtained of the lingula and the anterior basal portion of the left lower lobe. These were split on the back table and a portion sent for culture and the old sent for pathology. Staple lines were examined and noted to be intact. A 28-Chadian chest tube was placed through separate stab incision and positioned posterior apically. Rib blocks were performed at the level of the incisions with half percent Marcaine. Chest tube was secured with an 0 Ethibond suture. 2 lung ventilation was reinstated and the chest tube was connected to a Pleur-evac. Incisions were closed with layers of Vicryl suture. Skin glue and dry sterile dressings were applied and the patient was turned supine. Patient was extubated and transferred to recovery in stable condition.
--- NOTE | 2018-05-10 11:56 | XR ---
EXAMINATION TYPE: XR chest 1V portable DATE OF EXAM: 05/10/2018 CLINICAL HISTORY: Left lung biopsy. TECHNIQUE: Single AP portable upright view of the chest is obtained. COMPARISON: Chest x-ray from March 05, 2018. CT chest February 27, 2018 FINDINGS: There is left-sided chest tube with small left apical pneumothorax estimated around 5% als o involving lateral mid to inferior aspect of lung. Subcutaneous emphysema lower left lateral chest w all along course of chest tube is noted. No mediastinal shift is seen. There is background reticular interstitial change bilaterally. Cardiac silhouette size is stable and enlarged but correlates with p rominent pericardial fat pad on CT. Osseous structures are intact. Slightly suboptimal study due to p ortable technique and patient's large body habitus. IMPRESSION: There is small left apical and inferolateral pneumothorax estimated 5% despite chest tube placement. There is background of chronic bilateral peripheral reticulation and/or fibrosis seen dif fusely.
[2018-05-10] MEDS ORDERED: LACTATED RINGERS 1,000 ML IV ONE (17:00)
[2018-05-10] MEDS: HYDROmorphone 0.5 MG/0.5 ML SYRINGE IVP PRN ×3 (18:16→20:21)
[2018-05-10] MEDS ORDERED: METHOTREXATE SODIUM 2.5 MG TAB PO SCH (20:00)
[2018-05-10] MEDS ORDERED: ASPIRIN 81 MG PO SCH (21:00)
[2018-05-10] MEDS: CYCLOBENZAPRINE 10 MG TAB PO SCH (21:30)
[2018-05-10] MEDS: METOPROLOL TARTRATE 25 MG TAB PO SCH (21:31)
[2018-05-10] MEDS: PREGABALIN 75 MG CAP PO SCH ×2 (21:31→21:32)
[2018-05-10] MEDS: TRIAMCINOLONE 0.1% CREAM 80 GM TUBE TOPICAL SCH (21:32)
[2018-05-11] MEDS ORDERED: IPRATROPIUM-ALBUTEROL 3 ML NEB IH PRN (06:24)
[2018-05-11] MEDS ORDERED: ACETAMINOPHEN TAB 325 MG TAB PO PRN ×2 (06:24)
[2018-05-11] MEDS ORDERED: ONDANSETRON 4 MG/2 ML VIAL IVP PRN (06:24)
[2018-05-11] MEDS: KETOROLAC 30 MG/ML 1 ML VIAL IVP SCH ×2 (06:34→11:19)
[2018-05-11] MEDS: HEPARIN SODIUM,PORCINE 5,000 UNIT/ML 1 ML VIAL SQ SCH ×2 (06:34→08:03)
[2018-05-11] MEDS: traMADol 50 MG TAB PO SCH ×2 (06:35→08:06)
[2018-05-11] MEDS ORDERED: DEXTROSE 5%-0.45% NACL 1,000 ML IV SCH (07:00)
[2018-05-11 07:20] LABS: Basophils % (A) 0 %; Eosinophils # (A) 0.3 k/uL (0-0.7); Eosinophils % (A) 2 %; HCT 38.1 % (39.0-53.0); HGB 12.5 gm/dL (13.0-17.5); Lymphocytes # (A) 1.9 k/uL (1.0-4.8); Lymphocytes % (A) 17 %; MCHC 32.9 g/dL (31.0-37.0); MCV 100.3 fL (80.0-100.0); Macrocytosis Slight; Mean Platelet Volume 6.3; Monocytes # (A) 0.8 k/uL (0-1.0); Monocytes % (A) 7 %; Neutrophils % (A) 71 %; Platelet Count 163 k/uL (150-450); RDW 13.8 % (11.5-15.5); WBC 11.3 k/uL (3.8-10.6)
[2018-05-11] MEDS: IPRATROPIUM-ALBUTEROL 3 ML NEB IH SCH ×2 (07:32→11:48)
[2018-05-11 07:40] LABS: Anion Gap 9 mmol/L; Blood Urea Nitrogen 20 mg/dL (9-20); Carbon Dioxide 22 mmol/L (22-30); Chloride 106 mmol/L (98-107); Glucose 100 mg/dL (74-99); Potassium 4.7 mmol/L (3.5-5.1); Sodium 137 mmol/L (137-145)
--- NOTE | 2018-05-11 07:42 | XR ---
EXAMINATION TYPE: XR chest 2V DATE OF EXAM: 05/11/2018 COMPARISON: 05/10/2018 HISTORY: Postop VATS procedure TECHNIQUE: Frontal and lateral views of the chest are obtained. FINDINGS: There is redemonstration of a small left pneumothorax appearing overall similar in volume to the prior of 05/10/2018, again estimated to be approximately 5% with stable positioning of the left thoracostomy tube. Cardiomediastinal silhouette is enlarged. Calcified left mediastinal lymph node i s noted. Interstitial prominence throughout remains. There is blunting of the left costophrenic angle . Osseous structures are grossly intact with mild degenerative changes of the thoracic spine. IMPRESSION: Similar small left pneumothorax, mild interstitial edema, and trace left pleural effusio n.
[2018-05-11 08:07] VITALS: RESP 18; TEMP 98.3
[2018-05-11] MEDS: CYCLOBENZAPRINE 10 MG TAB PO SCH (08:08)
[2018-05-11] MEDS: TRIAMCINOLONE 0.1% CREAM 80 GM TUBE TOPICAL SCH (08:08)
[2018-05-11] MEDS: METOPROLOL TARTRATE 25 MG TAB PO SCH (08:08)
[2018-05-11] MEDS: PREGABALIN 75 MG CAP PO SCH (08:08)
--- NOTE | 2018-05-11 08:31 | P.PN ---
Subjective Progress Note Date: 05/11/18 Principal diagnosis: Bilateral pulmonary infiltrates. Previous medical history of coronary artery disease with stenting to the right coronary artery, left anterior descending coronary artery, and left main coronary artery in March 2018, morbid obesity , obstructive sleep apnea with CPAP use, current chewing tobacco use, chronic arthritis, psoriasis with chronic methotrexate. POD #1 left thoracoscopic lung biopsy. The patient is currently sitting up in bed in no acute distress. Does complain of pain but has not wanted any pain medication. Denies shortness of breath. He is wanting the chest tube removed and he is anxious to go home. No other new complaints. Objective - Vital Signs Vital signs: Vital Signs Temp 98.3 F 05/11/18 08:06 Pulse 74 05/11/18 08:06 Resp 18 05/11/18 08:06 BP 113/61 05/11/18 08:06 Pulse Ox 95 05/11/18 08:06 Intake & Output 05/10/18 05/11/18 05/11/18 18:59 06:59 18:59 Intake Total 1300 340 Output Total 1015 830 Balance 285 -490 Weight 136 kg Intake: IV 1300 Intake, IV Titration 100 Amount Lactated Ringers 1,000 ml 100 @ 20 mls/hr IV .Q24H [facility] Rx#:[id number] Oral 240 Output: Chest Tube Drainage 30 Chest Tube Left 30 Urine 850 800 Pleural Fluid 145 Estimated Blood Loss 20 Other: Voiding Method Urinal Urinal # Voids 3 - Constitutional General appearance: Present: cooperative, no acute distress, obese - Respiratory Details: Lungs sounds diminished bilaterally. Respirations even, nonlabored. Currently on 2 L nasal cannula with oxygen saturation 96%. Left pleural chest tube to waterseal, 30 mL serous drainage overnight, 250 mL since surgery. No air leak present. - Cardiovascular Details: S1, S2 present. Regular rate and rhythm, sinus rhythm on telemetry. Palpable peripheral pulses bilaterally. No edema present. No calf pain or tenderness noted. - Gastrointestinal Gastrointestinal Comment(s): Abdomen soft, nontender, nondistended. Active bowel sounds 4 quadrants. Tolerating diet. - Genitourinary Genitourinary Comment(s): Continues to void clear, yellow urine. Output 800 mL overnight. - Integumentary Integumentary Comment(s): Skin is warm and dry with evidence of good perfusion. Left lateral chest tube site covered with dry intact dressing. - Neurologic Neurologic: Present: CNII-XII intact - Musculoskeletal Musculoskeletal: Present: gait normal, strength equal bilaterally - Psychiatric Psychiatric: Present: A&O x's 3, appropriate affect, intact judgment & insight - Allied health notes Allied health notes reviewed: nursing - Labs CBC & Chem 7: 05/11/18 06:39 05/11/18 06:39 Labs: Abnormal Lab Results - Last 24 Hours (Table) 05/11/18 05/11/18 Range/Units 06:39 06:39 WBC 11.3 H (3.8-10.6) k/uL RBC 3.80 L (4.30-5.90) m/uL Hgb 12.5 L (13.0-17.5) gm/dL Hct 38.1 L (39.0-53.0) % MCV 100.3 H (80.0-100.0) fL Neutrophils # 8.0 H (1.3-7.7) k/uL Glucose 100 H (74-99) mg/dL Microbiology - Last 24 Hours (Table) 05/10/18 11:08 Acid Fast Bacilli Smear - Final Lung - Left Acid Fast Bacilli Culture - Preliminary 05/10/18 11:08 Acid Fast Bacilli Smear - Final Lung - Left Acid Fast Bacilli Culture - Preliminary 05/10/18 11:08 Fungal Culture - Preliminary Lung - Left 05/10/18 11:08 Fungal Culture - Preliminary Lung - Left - Imaging and Cardiology Chest x-ray: report reviewed, image reviewed Assessment and Plan (1) Bilateral pulmonary infiltrates on chest x-ray Current Visit: Yes Status: Chronic Code(s): R91.8 - OTHER NONSPECIFIC ABNORMAL FINDING OF LUNG FIELD SNOMED Code(s): 993864730 (2) Coronary artery disease Current Visit: Yes Status: Chronic Code(s): I25.10 - ATHSCL HEART DISEASE OF [place] CORONARY ARTERY W/O ANG PCTRS SNOMED Code(s): 33131650 (3) Obstructive sleep apnea on CPAP Current Visit: Yes Status: Chronic Code(s): G47.33 - OBSTRUCTIVE SLEEP APNEA (ADULT) (PEDIATRIC); Z99.89 - DEPENDENCE ON OTHER ENABLING MACHINES AND DEVICES SNOMED Code(s): 74340065 (4) Psoriasis Current Visit: Yes Status: Chronic Code(s): L40.9 - PSORIASIS, UNSPECIFIED SNOMED Code(s): 0770745 (5) Arthritis Current Visit: Yes Status: Chronic Code(s): M19.90 - UNSPECIFIED OSTEOARTHRITIS, UNSPECIFIED SITE SNOMED Code(s): 1635044 (6) Chewing tobacco use Current Visit: Yes Status: Chronic Code(s): Z72.0 - TOBACCO USE SNOMED Code(s): 74648711 (7) History of heart artery stent Current Visit: Yes Status: Chronic Code(s): Z95.5 - PRESENCE OF CORONARY ANGIOPLASTY IMPLANT AND GRAFT SNOMED Code(s): 296513854 Plan: 1. Will discontinue left pleural chest tube. Repeat chest x-ray in 2 hours. If stable will discharge to home early this afternoon. 2. Incentive spirometry ordered, encourage use 10 times every hour while awake. 3. Wean off oxygen. 4. Encourage chewing tobacco cessation. 5. Continue current home medications. 6. Continue pain management with current medication regimen. Likely will discharge to home on oral Tylenol. 7. Will make follow-up appointments with Dr. Shelley and Dr. Guerrero. Time with Patient: Greater than 30
[2018-05-11] MEDS ORDERED: LISINOPRIL 10 MG TAB PO SCH (09:00)
[2018-05-11] MEDS ORDERED: ATORVASTATIN 80 MG TAB PO SCH (09:00)
[2018-05-11] MEDS ORDERED: CLOPIDOGREL 75 MG TAB PO SCH (09:00)
[2018-05-11] MEDS ORDERED: traMADol 50 MG TAB PO PRN (10:09)
[2018-05-11 11:23] VITALS: BP 115/56
[2018-05-11 11:56] VITALS: PULSE 84
[2018-05-11] MEDS ORDERED: FOLIC ACID 1 MG TAB PO SCH (12:00)
--- NOTE | 2018-05-11 13:09 | P.DS ---
Providers Date of admission: 05/10/18 08:25 Expected date of discharge: 05/11/18 Attending physician: Erasmo Shelley Consults: 05/11/18 06:24 Consult Physician Routine Consulting Provider: Jose De Jesus Mahan Consult Reason/Comments: known to Cesar Do you want consulting provider notified?: Yes Primary care physician: Cali Crain - Discharge Diagnosis(es) (1) Bilateral pulmonary infiltrates on chest x-ray Current Visit: Yes Status: Chronic (2) Coronary artery disease Current Visit: Yes Status: Chronic (3) Obstructive sleep apnea on CPAP Current Visit: Yes Status: Chronic (4) Psoriasis Current Visit: Yes Status: Chronic (5) Arthritis Current Visit: Yes Status: Chronic (6) Chewing tobacco use Current Visit: Yes Status: Chronic (7) History of heart artery stent Current Visit: Yes Status: Chronic Hospital Course: FINAL DIAGNOSIS: 1. Bilateral pulmonary infiltrates 2. History of coronary artery disease with recent stenting 3. Morbid obesity 4. Obstructive sleep apnea with CPAP use 5. Current chewing tobacco use 6. Chronic arthritis 7. Psoriasis with chronic methotrexate PRINCIPAL PROCEDURE: 1. Left thoracoscopic lung biopsy HISTORY OF PRESENT ILLNESS: This is a 58-year-old gentleman who follows with Dr Cali Crain and Dr. Guerrero on an outpatient basis. 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 He frequently has to inhale noxious fumes, inhales metal dust, and he does not have any type of respirator to wear at work. He complained that over the previous 3 years he had progressive dyspnea. He had workup from Dr. Guerrero including pulmonary function test demonstrating restrictive lung disease and subpleural fibrosis on computed tomography scan. The patient was referred to Dr. Shelley from cardiothoracic surgery. He was recommended to undergo thoracoscopic lung biopsy. The usual perioperative course was discussed in detail with the patient and his family, all risks and benefits were explained, all questions were answered, and consent was obtained to proceed with surgery. Because of his recent drug-eluting stents , surgery was to be performed while on Plavix, increasing the risk of bleeding complications. This was discussed with the patient in detail, and he was willing to accept the risk as he did not want to wait another 4 months for the procedure. HOSPITAL COURSE: The patient was brought to the hospital on 05/10/2018, taken to the preoperative area, prepared in the usual fashion, and subsequently taken to the operating room where Dr. Shleley performed a left thoracoscopic lung biopsy. Upon completion of surgery the patient was extubated and taken to the recovery room where he was recovered and monitored hemodynamically. He was eventually admitted to [address] [place] [address] cardiac stepdown unit where he continued to progress without incident. His chest tube had no air leak and his chest x-ray was stable , the chest tube was discontinued on postoperative day #1. Repeat chest x-ray remained stable. His oxygen was titrated down, he was tolerating oral diet, his pain was controlled, and he was ready to be discharged to home on postoperative day #1. He received written and verbal instruction regarding his medications, activity restrictions, signs and symptoms requiring physician notification, and follow-up appointments. COMPLICATIONS: The patient experienced no postoperative complications. Patient Condition at Discharge: Stable Plan - Discharge Summary Discharge Rx Participant: No New Discharge Prescriptions: New Acetaminophen Tab [Tylenol] 325 - 650 mg PO Q4HR PRN tab PRN Reason: Fever And/ Or Pain Continue Nitroglycerin Sl Tabs [Nitrostat] 0.4 mg SUBLINGUAL Q5M PRN PRN Reason: Chest Pain Atorvastatin [Lipitor] 80 mg PO DAILY Butalb/APAP/Caff 50-325-40Mg [Fioricet 50-325-40] 2 tab PO BID PRN PRN Reason: Migraine Headache Aspirin EC [Ecotrin Low Dose] 81 mg PO HS Levocetirizine Dihydrochloride [Xyzal] 5 mg PO DAILY PRN PRN Reason: Allergy Symptoms diphenhydrAMINE [Benadryl] 25 mg PO BID PRN PRN Reason: Itching Metoprolol Tartrate [Lopressor] 25 mg PO BID Clopidogrel [Plavix] 75 mg PO DAILY Lisinopril [Zestril] 10 mg PO QAM hydrOXYzine HCL [Atarax] 25 mg PO TID PRN PRN Reason: Itching Triamcinolone 0.1% Cream [Kenalog 0.1% Cream] 1 applicate TOPICAL BID Methotrexate Sodium [Methotrexate] 17.5 mg PO Q7D Folic Acid 1 mg PO SUMOTUWEFRSA Cyclobenzaprine [Flexeril] 10 mg PO BID Albuterol Nebulized (Conc) [Ventolin Nebulized (Conc)] 2.5 mg INHALATION RT- BID Pregabalin [Lyrica] 150 mg PO TID Discharge Medication List Nitroglycerin Sl Tabs [Nitrostat] 0.4 mg SUBLINGUAL Q5M PRN 09/06/14 [History] Atorvastatin [Lipitor] 80 mg PO DAILY 09/12/14 [History] Aspirin EC [Ecotrin Low Dose] 81 mg PO HS 11/12/15 [History] Butalb/APAP/Caff 50-325-40Mg [Fioricet 50-325-40] 2 tab PO BID PRN 11/12/15 [ History] Levocetirizine Dihydrochloride [Xyzal] 5 mg PO DAILY PRN 06/03/16 [History] diphenhydrAMINE [Benadryl] 25 mg PO BID PRN 06/03/16 [History] Clopidogrel [Plavix] 75 mg PO DAILY 01/06/17 [History] Metoprolol Tartrate [Lopressor] 25 mg PO BID 01/06/17 [History] Lisinopril [Zestril] 10 mg PO QAM 01/09/17 [History] hydrOXYzine HCL [Atarax] 25 mg PO TID PRN 02/01/17 [History] Triamcinolone 0.1% Cream [Kenalog 0.1% Cream] 1 applicate TOPICAL BID 02/06/17 [ History] Cyclobenzaprine [Flexeril] 10 mg PO BID 03/05/18 [History] Folic Acid 1 mg PO SUMOTUWEFRSA 03/05/18 [History] Methotrexate Sodium [Methotrexate] 17.5 mg PO Q7D 03/05/18 [History] Albuterol Nebulized (Conc) [Ventolin Nebulized (Conc)] 2.5 mg INHALATION RT-BID 05/04/18 [History] Pregabalin [Lyrica] 150 mg PO TID 05/10/18 [History] Acetaminophen Tab [Tylenol] 325 - 650 mg PO Q4HR PRN tab 05/11/18 [Rx] Follow up Appointment(s)/Referral(s): Cali Crain MD [Primary Care Provider] - As Needed Erasmo Shelley MD [STAFF PHYSICIAN] - 05/17/18 1:45 pm [facility], [NON-STAFF] - As Needed Pramod Guerrero MD [STAFF PHYSICIAN] - 05/28/18 3:00 pm Gisselle Nunes MD [STAFF PHYSICIAN] - As Needed Patient Instructions/Handouts: *Surgery [facility] - Lung, Liver, Kidney, Adrenal Gland Biopsy Discharge Instructions, Thoracoscopy (DC) Activity/Diet/Wound Care/Special Instructions: DISCHARGE INSTRUCTIONS: 1. No driving for 2 weeks, or until physician gives their ok. 2. The patient should sleep in their own bed, no medical bed needed. 3. No lifting, pushing, or pulling more than 10 pounds for 2 weeks. The physician will advise of any restriction changes. 4. Continue pain control per as needed orders. 5. Continue with incentive spirometry and splinting until otherwise directed by the physician. 6. May shower daily starting 05/13/2018. Do not remove dressing until then. May reinforce if drainage present. 7. Routine incision care. No powders, lotions, ointments on incisions. 8. Please call surgeon/[employer] for temp greater than 101 F or purulent drainage from incisions. Discharge Disposition: HOME SELF-CARE
--- NOTE | 2018-05-11 13:14 | XR ---
EXAMINATION TYPE: XR chest 2V DATE OF EXAM: 05/11/2018 COMPARISON: 05/11/2018 TECHNIQUE: PA and lateral views submitted. HISTORY: Chest tube removal FINDINGS: There is redemonstration of a small left pneumothorax appearing overall similar in volume to the prio r exam estimated to be approximately 5 to 10 %. Chest tube is been removed. Cardiomediastinal silhouette is enlarged. Calcified left mediastinal lymph node is noted. Interstitia l prominence throughout remains. There is blunting of the left costophrenic angle. Osseous structures are grossly intact with mild degenerative changes of the thoracic spine. Subsegmental consolidation at both lung bases greater on the left. Tiny pleural effusions not excluded. IMPRESSION: 1. Left-sided pneumothorax measuring 5-10% is stable post chest tube removal. 2. Correlate for cardiomegaly chronic interstitial lung disease and bilateral lower lobe infiltrate.
--- NOTE | 2018-05-11 14:53 | CONS ---
CONSULTATION DATE OF SERVICE: 05/11/2018 PULMONARY CRITICAL CARE CONSULTATION: This is a 58-year-old male who sees my partner, Dr. Guerrero. He was seen in the office last back on March 18. The patient was seen initially because of a concern of interstitial lung disease. He was referred for a high-resolution CT scan. It did in fact show evidence of pulmonary fibrosis in the subpleural and peripheral regions of the lungs. There was no significant ground-glass changes. There was some traction bronchiectasis. His FVC was 60% of predicted and his diffusing capacity was 62% of predicted. His rheumatoid factor and MANUEL were both negative. 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 One concern that I think my partner Dr. Guerrero and I both include pneumoconiosis. Anyway, the patient was in the hospital and had a VATS procedure and a left lung biopsy. The patient will be discharged home today. He is doing relatively well. Feeling well. He is with his . The gives most of the history. His allergies are denied. MEDICATIONS: At home include aspirin, Lipitor, Benadryl, a combination of butalbital, Tylenol, caffeine and codeine, Flexeril, [place], hydroxyzine, ibuprofen, lisinopril, methotrexate, metoprolol, Naprosyn, and Nitrostat. PAST MEDICAL PROBLEMS: Include CAD, obesity, psoriasis, chronic arthritis, sleep apnea syndrome. SURGICAL HISTORY: Positive for previous PCI with stents. SOCIAL HISTORY: Negative for tobacco use. No alcohol abuse. No IVDA. The patient does chew tobacco. The rest of his history is not too remarkable. FAMILY HISTORY: Apparently negative for chronic lung disease, although he apparently had a sibling who of lung cancer. REVIEW OF SYSTEMS: CONSTITUTIONAL: Negative. NEUROLOGIC: Negative. HEENT: Negative. CARDIOVASCULAR: Negative. PULMONARY: Shortness of breath. Pain on deep breathing from the surgical incision site. GI:: Negative. RHEUMATOLOGIC/IMMUNOLOGIC: Negative. ENDOCRINOLOGIC: Negative. DERMATOLOGIC: Negative. Current vital signs are reviewed. Temperature 98.3, heart rate 74, respiratory rate 18, blood pressure 113/61 mean 78, room-air saturation 95% to 96%. Appears in no acute distress. HEENT examination is grossly unremarkable. Mucous membranes are moist. No supplemental oxygen. Neck is supple. Full range of motion. No adenopathy or thyromegaly. Cardiovascular examination reveals regular rhythm and rate. S1, S2 normal. No S3, S4, murmur. Lungs reveal some bibasilar crackles. He does not take deep breaths because of the pain. No rhonchi. No wheezes. Abdomen is soft. Bowel sounds are heard. Extremities are intact. No cyanosis, clubbing, or edema. Skin without rash. Neurologic examination is brief but nonfocal. LAB DATA: Includes a white count 11.3, hemoglobin 12.5, hematocrit 38.1, platelet count normal. Electrolytes are pretty normal. Sodium 137, potassium 4.7, chloride 106, CO2 is 22, anion gap 9, BUN 20, creatinine 0.92, glucose 100, calcium 9. A chest x-ray today shows a bilateral interstitial disease. There may be a small left apical pneumothorax. Chest tubes have been removed. Medications are reviewed. ASSESSMENT: 1. Interstitial lung disease, rule out pulmonary fibrosis. 2. History of coronary artery disease with previous PCI and stent. 3. History of chronic arthritis. 4. Sleep apnea syndrome. 5. History of psoriasis. 6. Lifelong nonsmoker. PLAN: The patient will follow up with Dr. Guerrero. I did tell the patient that it may take 10 days before we get the final results. I said that typically the specimens are evaluated here but then sent to [facility] for their opinion. Additional recommendations and suggestions are forthcoming. He may be discharged home today. That is up to Cardiothoracic Surgery. No additional recommendations are made. MMODL / IJN: [id number] /
== END 2018-05-11 14:16 | disposition home health service (06) | DRG 167 ==
LOC: 2ORMAIN 08:25 → EDSTATUS 10:45 → 3SCARD 19:32
PROVIDERS: ADMIT Thoracic Surgery (Cardiothoracic Vascular Surgery); ATTEND Thoracic Surgery (Cardiothoracic Vascular Surgery)
PROC: 0BBH4ZX Excision of Lung Lingula, Percutaneous Endoscopic Approach, Diagnostic (ICD-10-PCS; 2018-05-10)
PROC: 0BBJ4ZX Excision of Left Lower Lung Lobe, Percutaneous Endoscopic Approach, Diagnostic (ICD-10-PCS; principal; 2018-05-10 10:00)
DX: R91.8 Other nonspecific abnormal finding of lung field (principal); Z68.42 Body mass index [BMI] 45.0-49.9, adult; L40.9 Psoriasis, unspecified; E66.01 Morbid (severe) obesity due to excess calories; I25.10 Atherosclerotic heart disease of native coronary artery without angina pectoris; G47.33 Obstructive sleep apnea (adult) (pediatric); M19.90 Unspecified osteoarthritis, unspecified site; J44.9 Chronic obstructive pulmonary disease, unspecified; I11.0 Hypertensive heart disease with heart failure; I50.9 Heart failure, unspecified; E78.5 Hyperlipidemia, unspecified; J84.10 Pulmonary fibrosis, unspecified; Z95.5 Presence of coronary angioplasty implant and graft; Z79.52 Long term (current) use of systemic steroids; Z72.0 Tobacco use; Z99.89 Dependence on other enabling machines and devices; Z91.048 Other nonmedicinal substance allergy status; I25.2 Old myocardial infarction; Z80.1 Family history of malignant neoplasm of trachea, bronchus and lung
CPT/HCPCS: 71045; 71046; 80048; 85025; 87102; 87116; 87206; 88307; 94640

== ENCOUNTER → 2018-05-29 | Outpatient (CLI) | payer BC, OTHER ==
[2018-05-29 23:26] LABS: Albumin 3.8 g/dL (3.80-4.90); Albumin/Globulin Ratio 1.58 (1.20-2.10); Bilirubin, Conjugated 0.2 mg/dL (0.20-0.40); Bilirubin,Unconjugated 0.1 mg/dL; Globulin 2.4 g/dL (1.6-3.3); Total Bilirubin 0.3 mg/dL (0.2-1.2); Total Protein 6.2 g/dL (6.2-8.2)
== END ==
LOC: LABWHC1 15:26
PROVIDERS: ATTEND Internal Medicine Critical Care Medicine
DX: J84.112 Idiopathic pulmonary fibrosis (principal); Z79.899 Other long term (current) drug therapy
CPT/HCPCS: 36415; 80076

== ENCOUNTER → 2018-12-10 | Outpatient (CLI) | payer OTHER ==
--- NOTE | 2018-12-11 08:02 | CT ---
EXAMINATION TYPE: CT abdomen w con DATE OF EXAM: 12/10/2018 COMPARISON: CT chest dated 02/27/2018 HISTORY: LUQ pain, pt indicated a lump on LT side since his lung biopsy in May CT DLP: 1776 mGycm Automated exposure control for dose reduction was used. TECHNIQUE: Helical acquisition of images was performed from the lung bases through the top of iliac crest to include entire abdomen. CONTRAST: Performed with Oral Contrast and with IV Contrast, patient injected with 100 mL of Isovue 300. FINDINGS: LUNG BASES: Prominent interstitial lung markings are seen at the lung bases with interlobular septal thickening, multifocal pleural thickening, subpleural deposition of fat, and strand-like atelectasis. Subpleural reticulation represents fibrosis. There is evidence of an open lung biopsy on the left liyah ng base with surgical sutures seen. Calcified mediastinal lymph nodes represent prior granulomatous d isease. LIVER/GB: No gross abnormality of the liver. No radiopaque calculi in the gallbladder or pericholecys tic fluid. PANCREAS: Mild pancreatic parenchymal atrophy. No ductal dilatation. Punctate calcification. Peripanc reatic cystic mass as detailed below in the bowel section. SPLEEN: No significant abnormality is seen. No splenomegaly. ADRENALS: No nodularity or thickening. KIDNEYS: Too small to accurately characterize punctate hypoattenuated left renal cortical lesion is s een. BOWEL: Abutting the lesser curvature of the gastric fundus there is a fluid attenuated noncomplicate d 5.4 x 3.6 cm cystic lesion also abutting the dorsal pancreas. There are no main pancreatic ductal d ilatation. Punctate calcification in the pancreatic parenchyma relates to chronic pancreatitis and th erefore this mass could represent a pseudocyst, enteric duplication cyst, or pancreatic cystic neopla sm (less likely). This was less discretely seen on the prior 02/27/2018. No dilated large or small bowel. Appendix is air-filled and within normal limits. Diastases recti is noted. LYMPH NODES: No greater than 1 cm short axis lymph node in the abdomen. OSSEOUS STRUCTURES: Moderate degenerative changes of the spine. Pseudoarthrosis of the 10th left cos tovertebral junction. There is irregularity at the costochondral junctions of the seventh and 10th le ft ribs. These could relate to healed fracture deformities. FREE AIR: No free air is visualized. OTHER: Moderate coronary artery calcifications. Moderate atherosclerosis of the abdominal aorta and i ts branches. Distal abdominal aortic slight ectasia is seen with the aorta measuring only 2.2 cm. No subcutaneous focal fluid collection or focal fat stranding. Particularly in the left upper quadran t from the patient's area of palpable abnormality. Age-indeterminate compression deformity of L3 is s een with vertebral body height loss of approximately 40%. IMPRESSION: 1. 5.4 X 3.6 CM CYSTIC LESION ABUTTING THE LESSER CURVATURE OF THE STOMACH AND DORSAL PANCREATIC BODY . THIS MAY REPRESENT A PSEUDOCYST, ENTERIC DUPLICATION CYST, OR LESS LIKELY PANCREATIC CYSTIC NEOPLAS M. MRI pancreatic mass protocol could be utilized for further characterization. 2. NO DISCRETE ABNORMALITY IN THE SUBCUTANEOUS TISSUES OF THE LEFT UPPER QUADRANT OR LEFT FLANK AND T HE PATIENT'S AREA OF PALPABLE ABNORMALITY AFTER OPEN LUNG BIOPSY. THERE IS HOWEVER IRREGULARITY AT TH E COSTOCHONDRAL JUNCTIONS OF THE SEVENTH AND 10TH LEFT RIBS THAT MAY RELATE TO HEALED FRACTURE DEFORM ITIES. 3. AGE-INDETERMINATE COMPRESSION DEFORMITY OF L3. CORRELATE WITH POINT TENDERNESS. 4. SUBPLEURAL FIBROSIS OF THE LUNG BASES.
== END | disposition home or self-care (01) ==
LOC: RADCTMAIN 16:52
PROVIDERS: ATTEND Internal Medicine Critical Care Medicine
DX: K31.9 Disease of stomach and duodenum, unspecified (principal)
CPT/HCPCS: 74160; Q9967

== ENCOUNTER → 2018-12-27 | Outpatient (CLI) | payer OTHER ==
[2018-12-27 07:59] LABS: African American GFR (CKD) >90 (>60 ml/min/1.73 sqM); Anion Gap 10 mmol/L; Blood Urea Nitrogen 15 mg/dL (9-20); Calcium 9.4 mg/dL (8.4-10.2); Carbon Dioxide 23 mmol/L (22-30); Chloride 107 mmol/L (98-107); Glucose 115 mg/dL (74-99); Potassium 4.4 mmol/L (3.5-5.1); Sodium 140 mmol/L (137-145)
== END | disposition home or self-care (01) ==
LOC: LABWHC1 06:56
PROVIDERS: ATTEND Family Medicine
DX: I10 Essential (primary) hypertension (principal); G43.909 Migraine, unspecified, not intractable, without status migrainosus; R94.4 Abnormal results of kidney function studies
CPT/HCPCS: 36415; 80048

== ENCOUNTER → 2019-01-22 | Outpatient (CLI) | payer OTHER | END | disposition home or self-care (01) | LOC: RADMRIMAIN 10:22 | PROVIDERS: ATTEND Internal Medicine Critical Care Medicine | DX: Z53.9 Procedure and treatment not carried out, unspecified reason (principal) ==

== ENCOUNTER → 2019-03-12 | Outpatient (CLI) | payer OTHER ==
[2019-03-07 15:02] VITALS: BMI 48.3
[2019-03-12 11:41] VITALS: BP 97/67; PULSE 69; RESP 16
--- NOTE | 2019-03-12 13:07 | P.PAINCN ---
History of Present Illness - Reason for Consult Consult date: 03/12/19 - Chief Complaint Low back pain - History of Present Illness This is a 59-year-old patient referred by Dr. Jones for chronic pain in low back pain with radiation down to the left leg. His pain is 80% in his low back, 20% in his leg, he does have pain in his neck also. His low back pain is located greater on the belt line, he does have some pain below the belt line also. He has been taking narcotics from Dr. Hartley, he has been prescribed Imperial 01/31/2025 taking about 4 per day. He also takes gabapentin 300 3 times a day in both patella when necessary. Of note he was evaluated in our panic in 2017 for occipital neuralgia, however this is a new consult and he is being evaluated for low back pain. 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 He has stopped working since May of this year. Patient also denies new-onset weakness, bowel/bladder incontinence, or any other signs or symptoms of cauda equina syndrome. There are no signs of acute intoxication, and no indications of medication diversion or overuse. Of note he was first evaluated by Dr. Jones, risks and going to perform an epidural for his leg pain, however given his significant comorbidities including idiopathic pulmonary fibrosis, per patient report his lungs are functioning only at 45% of capacity, and his coronary artery disease on stents, he was referred here to be done in a hospital setting. Past Medical History Past Medical History: Coronary Artery Disease (CAD), Chest Pain / Angina, Heart Failure, COPD, Deep Vein Thrombosis (DVT), Hyperlipidemia, Hypertension, Myocardial Infarction (MD), Neurologic Disorder, Osteoarthritis (OA), Respiratory Disorder, Skin Disorder, Sleep Apnea/CPAP/BIPAP Additional Past Medical History / Comment(s): states 45% loss of function in both lungs, FELL OFF HOUSE WITH CLOSED HEAD INJURY (1999)-unable to read/write after head injury; MIGRAINE HEADACHES, PSORIASIS, MULTIPLE CERVICAL SPURS, DDD., HAYFEVER, uses cpap, Last Myocardial Infarction Date:: History of Any Multi-Drug Resistant Organisms: None Reported Past Surgical History: Heart Catheterization, Heart Catheterization With Stent Additional Past Surgical History / Comment(s): HEART CATH (10/2015,2018)total heart stents x3, NOSE SURGERY. PAIN CLINIC PROCEDURES in past Past Anesthesia/Blood Transfusion Reactions: No Reported Reaction Date of Last Stent Placement:: 2014,2016,2017 Past Psychological History: No Psychological Hx Reported Smoking Status: Never smoker Past Alcohol Use History: None Reported Additional Past Alcohol Use History / Comment(s): CHEWS TOBACCO SINCE 14 YEARS OLD- CHEWS 1/2 CAN PER DAY Past Drug Use History: None Reported Additional Drug Use History / Comment(s): . - Past Family History Mother Family Medical History: No Reported History Additional Family Medical History / Comment(s): at age 24 with heart problem 2 days after giving Father Family Medical History: COPD, Renal Disease Additional Family Medical History / Comment(s): at age early 50s Sister(s) Family Medical History: Cancer Additional Family Medical History / Comment(s): lung Brother(s) Family Medical History: Cancer, Coronary Artery Disease (CAD), Myocardial Infarction (MD) Additional Family Medical History / Comment(s): HALF BROTHER HAD A MD,lung CA Medications and Allergies Home Medications Medication Instructions Recorded Confirmed Type Nitroglycerin Sl Tabs [Nitrostat] 0.4 mg SUBLINGUAL Q5M PRN 09/06/14 03/12/19 History Atorvastatin [Lipitor] 80 mg PO DAILY 09/12/14 03/12/19 History Aspirin EC [Ecotrin Low Dose] 81 mg PO HS 11/12/15 03/12/19 History Butalb/APAP/Caff 50-325-40Mg 2 tab PO BID PRN 11/12/15 03/12/19 History [Fioricet 50-325-40] Levocetirizine Dihydrochloride 5 mg PO DAILY PRN 06/03/16 03/12/19 History [Xyzal] diphenhydrAMINE [Benadryl] 25 mg PO BID PRN 06/03/16 03/12/19 History Clopidogrel [Plavix] 75 mg PO DAILY 01/06/17 03/12/19 History Metoprolol Tartrate [Lopressor] 25 mg PO BID 01/06/17 03/12/19 History Lisinopril [Zestril] 10 mg PO QAM 01/09/17 03/12/19 History hydrOXYzine HCL [Atarax] 25 mg PO TID PRN 02/01/17 03/12/19 History Triamcinolone 0.1% Cream [Kenalog 1 applicate TOPICAL BID 02/06/17 03/12/19 History 0.1% Cream] Cyclobenzaprine [Flexeril] 10 mg PO BID 03/05/18 03/12/19 History Folic Acid 1 mg PO SUMOTUWEFRSA 03/05/18 03/12/19 History Methotrexate Sodium [Methotrexate] 17.5 mg PO Q7D 03/05/18 03/12/19 History Albuterol Nebulized (Conc) 2.5 mg INHALATION RT-BID 05/04/18 03/12/19 History [Ventolin Nebulized (Conc)] Pregabalin [Lyrica] 150 mg PO TID 05/10/18 03/12/19 History Acetaminophen Tab [Tylenol] 325 - 650 mg PO Q4HR PRN tab 05/11/18 03/12/19 Rx Gabapentin [Neurontin] 1 tab PO TID 03/12/19 03/12/19 History Allergies Allergy/AdvReac Type Severity Reaction Status Date / Time adhesive Allergy Rash/Hives Verified 03/12/19 11:30 Physical Exam Vitals: Vital Signs Pulse Resp BP Pulse Ox 03/12/19 11:32 69 16 97/67 97 Vital Signs: Reviewed in EMR GENERAL: Well appearing, in no acute distress, PSYCH: Mood and affect is appropriate. Awake, alert, and oriented SKIN: Skin color, texture, turgor normal, no rashes or lesions HEENT: Normocephalic, atraumatic. EOM intact CV: No pedal edema RESP: Respirations are unlabored, no audible wheezing GI: Abdomen non-distended MUSCULOSKELETAL: Bilateral upper and lower extremity strength is normal and symmetric. No atrophy or tone abnormalities are noted. Lumbar spine: Positive for pain to palpation over the lumbar spine and paraspinous muscles. Positive for pain with facet loading and back extension/rotation. lumbar flexion, extension limited due to pain. Buttocks: Positive to palpation to the PSIS Extremities: Peripheral joint ROM is full and pain free without obvious instability or laxity in all four extremities. No edema or skin discolorations noted. Gait: Gait is anantalgic NEUR: No loss of sensation is noted. Cranial nerves are grossly intact. Results Results: Lumbar MRI reviewed from 02/12/17: The impression is multilevel degenerative changes of the lumbar spine as detailed above, attention to L5-S1 level where there is spondylosis listhesis and degenerative changes causing advanced bilateral neural foraminal narrowing and encroachment on both L5 nerves. Assessment and Plan Assessment: Assessment: 1. Lumbar spondylosis 2. Lumbar radicular pain 3. SI joint dysfunction 4. Chronic opiate use 5. Obesity Plan: 1. Explanation: Given his physical exam and clinical findings he hasn't multiple elements of pain. As his pain is worse and his lumbar axial area, we decided to pursue a lumbar medial branch RFA workup. However he does have elements of pain that are consistent with an L5 radicular pain, and SI joint pain. He was explained that the medial branch blocks likely wouldn't take away all of his pain but would take away a component of his pain 2. Opioid agreement: None 3. Counseling: The patient was counseled extensively on BODY MASS INDEX, EXERCISE. Specifically, the patient was instructed regarding the importance of weight control, and exercise in the context of both chronic pain and overall health. 4. Procedures: Bilateral medial branch blocks at L3 L4 L5. 5. Consultations: None 6. Investigations: MRI reviewed 7. Medications: Encouraged patient to have discussions with primary care physician 8. Disposition: For his procedure. 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 , PQRS Measure Charge Sheet Measure #226: Tobacco Use: Screen & Cessation Intervention: Pt not a tobacco user Measure #111: Pneumonia Vaccination: Pneumococcal vaccine NOT administered or previously given Measure #47: Advance Care Plan: Advance care planning discussed & documented, pt chose/unable to give Measure #131: Pain Assessment & Follow-up: Pain positive & plan documented, Follow-up scheduled Measure #431: Unhealthy Alcohol Use Preventative Care & Scrn: Patient not identified as an unhealthy alcohol user PQRS Narrative: Smoking Status Never smoker Blood Pressure 97/67 Pain Intensity [Bilateral 9 Lower Back] Scale Used Numeric (1 - 10) Hx Alcohol Use (MH) No Home Medications: Ambulatory Orders Nitroglycerin Sl Tabs [Nitrostat] 0.4 mg SUBLINGUAL Q5M PRN 09/06/14 Atorvastatin [Lipitor] 80 mg PO DAILY 05/15/15 Aspirin EC [Ecotrin Low Dose] 81 mg PO HS 11/12/15 Butalb/APAP/Caff 50-325-40Mg [Fioricet 50-325-40] 2 tab PO BID PRN 11/12/15 Levocetirizine Dihydrochloride [Xyzal] 5 mg PO DAILY PRN 06/03/16 diphenhydrAMINE [Benadryl] 25 mg PO BID PRN 06/03/16 Clopidogrel [Plavix] 75 mg PO DAILY 01/06/17 Metoprolol Tartrate [Lopressor] 25 mg PO BID 01/06/17 Lisinopril [Zestril] 10 mg PO QAM 01/09/17 hydrOXYzine HCL [Atarax] 25 mg PO TID PRN 02/01/17 Triamcinolone 0.1% Cream [Kenalog 0.1% Cream] 1 applicate TOPICAL BID 02/06/17 Cyclobenzaprine [Flexeril] 10 mg PO BID 03/05/18 Folic Acid 1 mg PO SUMOTUWEFRSA 03/05/18 Methotrexate Sodium [Methotrexate] 17.5 mg PO Q7D 03/05/18 Albuterol Nebulized (Conc) [Ventolin Nebulized (Conc)] 2.5 mg INHALATION RT-BID 05/04/18 Pregabalin [Lyrica] 150 mg PO TID 05/10/18 Acetaminophen Tab [Tylenol] 325 - 650 mg PO Q4HR PRN tab 05/11/18 Gabapentin [Neurontin] 1 tab PO TID 03/12/19
== END ==
LOC: PNWHC3 11:25
PROVIDERS: ATTEND Student in an Organized Health Care Education/Training Program
DX: M47.26 Other spondylosis with radiculopathy, lumbar region (principal); M53.3 Sacrococcygeal disorders, not elsewhere classified; E66.9 Obesity, unspecified; Z79.891 Long term (current) use of opiate analgesic; Z79.899 Other long term (current) drug therapy; Z79.82 Long term (current) use of aspirin
CPT/HCPCS: 99211

== ENCOUNTER 2019-03-26 06:55 | Day surgery (SDC) | payer OTHER ==
[2019-03-22 14:05] VITALS: BMI 48.3
[2019-03-26] MEDS ORDERED: LACTATED RINGERS 1,000 ML IV SCH (07:58)
[2019-03-26 08:01] VITALS: TEMP 98.4
[2019-03-26] MEDS ORDERED: LIDOCAINE 1% 20 ML VIAL (10MG/ML) FOR IV START INTRADERMA ONE (08:01)
[2019-03-26 08:12] LABS: Glucose,Whole Blood 82 mg/dL (75-99)
--- NOTE | 2019-03-26 09:02 | P.PCN ---
Date of Procedure: 03/26/19 Procedure(s) Performed: PREOPERATIVE DIAGNOSIS : 1- Lumbar spondylosis with Facet Arthropathy without myelopathy . 2- Lumber degenerative disc disease POSTOPERATIVE DIAGNOSIS: 1- Lumbar spondylosis with Facet Arthropathy without myelopathy . 2- Lumber degenerative disc disease PROCEDURE: Diagnostic bilateral L3 , L4 , and L5 medial branch block under fluoroscopy guidance(fluoroscopy images available in the radiology Department ). (The target point is facet joints between L4-5 and L5-S1 leveles ) ANESTHESIA: Local with Ropivacain 0.5 % 6 ml , moderate sedation with intravenous Versed 2 mg and Fentanyl 50 mcg. EBL: Minimal COMPLICATION: None. IV FLUIDS: 100 mL of normal saline. PROCEDURE INDICATION: Chronic low back pain secondary to Facet arthropathy unresponsive to conservative treatment. PROCEDURE DESCRIPTION: the patient was seen and identified in the preop holding area , risks and benefits and possible complications of the procedure and alternative were discussed with the patient, and the patient agreed to proceed with the procedure and signed the consent IV was started and vital signs monitored during the procedure and fluoroscopy was used to maximize the benefit and accuracy of the needle placement, and sedation was given to decrease patient anxiety, patient was taken to the procedure room and placed in prone position vital signs monitored in the back prepped with chlorhexidine X3 then under strict sterile technique using a right oblique fluoroscopy ,the junction of the transverse process and the superior articulating process of the right L3 , L4, and L5 vertebra which corresponding to the fluoroscopy image of the eye of the Yaya dog on the block side for the medial branches and subsequently , after local infiltration of skin and subcu tissuies with Ropivacaine 0.5 % , one mL at each level ,then 22-gauge 5 inches long Quincke-type needles , 3 needle was used , each one of them placed at the junction of the base of the transverse process and the superior articular process at the appropriate level, and the needle was advanced until the periosteum contacted, needle placement confirmed with AP oblique and lateral view and after appropriate needle placement confirmed, and after negative aspiration for heme and CSF and there was no paresthesia 1-1/2 mL of Ropivacaine 0.5% mixed with 20 mg Depo-Medrol , then half mL injected at each level after negative aspiration the needle subsequently removed and the same procedure repeated for the left side at left side at L3, L4 and [id number]. At the end of the procedure and the needles removed and a bandage applied after the skin was cleaned the cleaning solution patient taken to recovery room in stable condition and monitors in the recovery room for 20-30 minutes and discharged home in stable condition after discharge criteria met and patient will follow up with the pain clinic in 2-4 weeks
[2019-03-26] MEDS ORDERED: IV FLUID CONTINUATION 1,000 ML IV ONE (09:05)
[2019-03-26 09:10] VITALS: RESP 16
--- NOTE | 2019-03-26 09:15 | FL ---
Fluoroscopy HISTORY: Pain 35 seconds fluoroscopy time supplied to the referring clinician. 4 intraoperative C-arm images docum ent the procedure. See dictated report from anesthesia.
[2019-03-26 09:18] VITALS: BP 123/83; PULSE 56
== END 2019-03-26 09:35 | disposition home or self-care (01) ==
LOC: ORPAIN 06:55
PROVIDERS: ATTEND Specialist
DX: G89.29 Other chronic pain (principal); M47.816 Spondylosis without myelopathy or radiculopathy, lumbar region; M51.36 Other intervertebral disc degeneration, lumbar region; I11.0 Hypertensive heart disease with heart failure; I50.9 Heart failure, unspecified; I25.10 Atherosclerotic heart disease of native coronary artery without angina pectoris
CPT/HCPCS: 64493; 64494; J2250; J1030; J3010; 99152

== ENCOUNTER 2019-05-07 05:55 | Day surgery (SDC) | payer OTHER ==
[2019-04-29 17:15] VITALS: BMI 48.6
[~2019-05-07 05:55] MED LIST changes: +BUPIVACAINE (PF) 0.5% 30 ML VIAL ONE; -DEXAMETHASONE SOD PHOSPHATE 10 MG/ML 1 ML VIAL IV ONE; -LACTATED RINGERS 1,000 ML IV SCH; -LIDOCAINE 1% 20 ML VIAL (10MG/ML) FOR IV START INTRADERMA PRN; +MIDAZOLAM 2 MG/2 ML VIAL ONE; -ONDANSETRON 4 MG/2 ML VIAL IVP ONE; +fentaNYL (PF) 50 MCG/ML 2 ML AMP ONE; +methylPREDNISolone ACETATE 40 MG/ML 1 ML VIAL ONE
[2019-05-07] MEDS ORDERED: LACTATED RINGERS 1,000 ML IV ONE (06:30)
[2019-05-07] MEDS ORDERED: LIDOCAINE 1% 20 ML VIAL (10MG/ML) FOR IV START INTRADERMA ONE (06:30)
[2019-05-07 06:36] VITALS: TEMP 98
[2019-05-07] MEDS ORDERED: LACTATED RINGERS 1,000 ML IV SCH (06:45)
--- NOTE | 2019-05-07 07:24 | P.PCN ---
Date of Procedure: 05/07/19 Procedure(s) Performed: PREOPERATIVE DIAGNOSIS : 1- Lumbar spondylosis with Facet Arthropathy without myelopathy . 2- Lumber degenerative disc disease POSTOPERATIVE DIAGNOSIS: 1- Lumbar spondylosis with Facet Arthropathy without myelopathy . 2- Lumber degenerative disc disease PROCEDURE: Diagnostic bilateral L3 , L4 , and L5 medial branch block under fluoroscopy guidance(fluoroscopy images available in the radiology Department ). (The target point is facet joints between L4-5 and L5-S1 leveles ) (# 2nd ) ANESTHESIA: Local with Ropivacain 0.5 % 6 ml , moderate sedation with intravenous Versed 2 mg and Fentanyl 50 mcg. EBL: Minimal COMPLICATION: None. IV FLUIDS: 100 mL of normal saline. PROCEDURE INDICATION: Chronic low back pain secondary to Facet arthropathy unresponsive to conservative treatment. PROCEDURE DESCRIPTION: the patient was seen and identified in the preop holding area , risks and benefits and possible complications of the procedure and alternative were discussed with the patient, and the patient agreed to proceed with the procedure and signed the consent IV was started and vital signs monitored during the procedure and fluoroscopy was used to maximize the benefit and accuracy of the needle placement, and sedation was given to decrease patient anxiety, patient was taken to the procedure room and placed in prone position vital signs monitored in the back prepped with chlorhexidine X3 then under strict sterile technique using a right oblique fluoroscopy ,the junction of the transverse process and the superior articulating process of the right L3 , L4, and L5 vertebra which corresponding to the fluoroscopy image of the eye of the Yaya dog on the block side for the medial branches and subsequently , after local infiltration of skin and subcu tissuies with Ropivacaine 0.5 % , one mL at each level ,then 22-gauge 5 inches long Quincke-type needles , 3 needle was used , each one of them placed at the junction of the base of the transverse process and the superior articular process at the appropriate level, and the needle was advanced until the periosteum contacted, needle placement confirmed with AP oblique and lateral view and after appropriate needle placement confirmed, and after negative aspiration for heme and CSF and there was no paresthesia 1-1/2 mL of Ropivacaine 0.5% mixed with 20 mg Depo-Medrol , then half mL injected at each level after negative aspiration the needle subsequently removed and the same procedure repeated for the left side at left side at L3, L4 and [id number]. At the end of the procedure and the needles removed and a bandage applied after the skin was cleaned the cleaning solution patient taken to recovery room in stable condition and monitors in the recovery room for 20-30 minutes and discharged home in stable condition after discharge criteria met and patient will follow up with the pain clinic in 2-4 weeks
[2019-05-07 07:34] VITALS: RESP 17
[2019-05-07 07:55] VITALS: BP 114/75; PULSE 55
--- NOTE | 2019-05-07 08:51 | FL ---
EXAMINATION TYPE: FL guided pain mgmt statistic DATE OF EXAM: 05/07/2019 HISTORY: Flouroscopy time 30 seconds of fluoroscopy provided. IMPRESSION: 1. Fluoroscopy time.
== END 2019-05-07 08:00 | disposition home or self-care (01) ==
LOC: ORPAIN 05:55
PROVIDERS: ATTEND Specialist
DX: G89.29 Other chronic pain (principal); M47.816 Spondylosis without myelopathy or radiculopathy, lumbar region; M51.36 Other intervertebral disc degeneration, lumbar region; I25.10 Atherosclerotic heart disease of native coronary artery without angina pectoris; I10 Essential (primary) hypertension; J44.9 Chronic obstructive pulmonary disease, unspecified; G47.30 Sleep apnea, unspecified; Z91.048 Other nonmedicinal substance allergy status; Z79.02 Long term (current) use of antithrombotics/antiplatelets
CPT/HCPCS: 64493; 64494; J2250; J1030; J3010; 99152

== ENCOUNTER 2019-05-19 10:02 | Emergency (ER) | payer OTHER ==
[2019-05-19 10:24] VITALS: PULSE 57; TEMP 97.6
[2019-05-19] MEDS ORDERED: MORPHINE SULFATE 4 MG/ML SYRINGE IV STA (10:29)
--- NOTE | 2019-05-19 10:34 | ED ---
General Adult HPI - General Chief complaint: Fall Stated complaint: fall Time Seen by Provider: 05/19/19 10:05 Source: patient, EMS, RN notes reviewed, old records reviewed Mode of arrival: EMS Limitations: no limitations - History of Present Illness Initial comments: 59-year-old male patient with extensive past medical history presents to ED due to chief complaint of fall with back pain. Patient reports that he was taking the garbage out, slipped on ice, fell having his right lower extremity, underneath him. He denies trauma to head or neck. Chief complaint is right lower lateral tibial pain. Denies any other complaints at this time. Systemic: Pt denies fatigue, fever/chills, rash. Pt denies weakness, night sweats, weight loss. Neuro: Pt denies headache, visual disturbances, syncope or pre-syncope. HEENT: Pt denies ocular discharge or irritation, otalgia, rhinorrhea, pharyngitis or notable lymphadenopathy. Cardiopulmonary: Pt denies chest pain, SOB, heart palpitations, dyspnea on exertion. Abdominal/GI: Pt denies abdominal pain, n/v/d. : Pt denies dysuria, burning w/ urination, frequency/urgency. Denies new onset urinary or bowel incontinence. MSK: Pt denies myalgia, loss of strength or function in extremities. Neuro: Pt denies new onset weakness, paresthesias. - Related Data Home Medications Medication Instructions Recorded Confirmed Nitroglycerin Sl Tabs [Nitrostat] 0.4 mg SUBLINGUAL Q5M PRN 09/06/14 04/29/19 Atorvastatin [Lipitor] 80 mg PO DAILY 09/12/14 04/29/19 Aspirin EC [Ecotrin Low Dose] 81 mg PO HS 11/12/15 04/29/19 Butalb/APAP/Caff 50-325-40Mg 2 tab PO BID PRN 11/12/15 04/29/19 [Fioricet 50-325-40] Levocetirizine Dihydrochloride 5 mg PO DAILY PRN 06/03/16 04/29/19 [Xyzal] diphenhydrAMINE [Benadryl] 25 mg PO BID PRN 06/03/16 04/29/19 Clopidogrel [Plavix] 75 mg PO DAILY 01/06/17 04/29/19 Metoprolol Tartrate [Lopressor] 25 mg PO BID 01/06/17 04/29/19 Lisinopril [Zestril] 10 mg PO QAM 01/09/17 04/29/19 hydrOXYzine HCL [Atarax] 25 mg PO TID PRN 02/01/17 04/29/19 Triamcinolone 0.1% Cream [Kenalog 1 applicate TOPICAL BID 02/06/17 04/29/19 0.1% Cream] Cyclobenzaprine [Flexeril] 10 mg PO BID 03/05/18 04/29/19 Albuterol Nebulized (Conc) 2.5 mg INHALATION RT-BID 05/04/18 04/29/19 [Ventolin Nebulized (Conc)] Pregabalin [Lyrica] 150 mg PO TID 05/10/18 04/29/19 Gabapentin [Neurontin] 600 mg PO TID 03/12/19 04/29/19 HYDROcodone/APAP 10-325MG [[place] 1 tab PO BID 04/29/19 04/29/19 10-325] Ibuprofen 800 mg PO Q8H PRN 04/29/19 04/29/19 Naproxen [Naprosyn] 500 mg PO Q12HR 04/29/19 04/29/19 Allergies Allergy/AdvReac Type Severity Reaction Status Date / Time adhesive Allergy Rash/Hives Verified 05/07/19 06:12 Review of Systems ROS Statement: Those systems with pertinent positive or pertinent negative responses have been documented in the HPI. ROS Other: All systems not noted in ROS Statement are negative. Past Medical History Past Medical History: Coronary Artery Disease (CAD), Chest Pain / Angina, Heart Failure, COPD, Deep Vein Thrombosis (DVT), Hyperlipidemia, Hypertension, Myocardial Infarction (MN), Neurologic Disorder, Osteoarthritis (OA), Resp iratory Disorder, Skin Disorder, Sleep Apnea/CPAP/BIPAP Additional Past Medical History / Comment(s): states 45% loss of function in both lungs, FELL OFF HOUSE WITH CLOSED HEAD INJURY (1999)-unable to read/write after head injury; MIGRAINE HEADACHES, PSORIASIS, MULTIPLE CERVICAL SPURS, DDD., HAYFEVER, uses cpap, Last Myocardial Infarction Date:: History of Any Multi-Drug Resistant Organisms: None Reported Past Surgical History: Heart Catheterization, Heart Catheterization With Stent Additional Past Surgical History / Comment(s): HEART CATH (10/2015,2017)total heart stents x3, NOSE SURGERY. PAIN CLINIC PROCEDURES in past Past Anesthesia/Blood Transfusion Reactions: No Reported Reaction Date of Last Stent Placement:: 2014,2016,2017 Past Psychological History: No Psychological Hx Reported Smoking Status: Never smoker Past Alcohol Use History: None Reported Past Drug Use History: None Reported - Past Family History Mother Family Medical History: No Reported History Additional Family Medical History / Comment(s): at age 24 with heart problem 2 days after giving Father Family Medical History: COPD, Renal Disease Additional Family Medical History / Comment(s): at age early 50s Sister(s) Family Medical History: Cancer Additional Family Medical History / Comment(s): lung Brother(s) Family Medical History: Cancer, Coronary Artery Disease (CAD), Myocardial Infarction (MN) Additional Family Medical History / Comment(s): HALF BROTHER HAD A MN,lung CA General Exam - General Exam Comments Initial Comments: Constitutional: NAD, AOX3, Pt has pleasant affect. HEENT: NC/AT, trachea midline, neck supple, no lymphadenopathy. Posterior pharynx non erythematous, without exudates. External ears appear normal, without discharge. Mucous membranes moist. Eyes PERRLA, EOM intact. There is no scleral icterus. No pallor noted. Cardiopulmonary: RRR, no murmurs, rubs or gallops, no JVD noted. Lungs CTAB in anterior and posterior nichols. No peripheral edema. Abdominal exam: Abdomen soft and non-distended. Abdomen non-tender to palpation in all 4 quadrants. Bowel sounds active in LLQ. No hepatosplenomegaly. No ecchymosis Neuro: CN II-XII grossly intact. No nuchal rigidity. No raccon eyes, no melissa sign, no hemotympanum. No cervical spinal tenderness. MSK: Ecchymoses noted distal right lower extremity. Tender to palpation. No posterior calf tenderness bilaterally, homans sign negative bilaterally. Posterior tibialis and radial pulse +2 bilaterally. Sensation intact in upper and lower extremities. Full active ROM in upper 5/5 stregnth. Limitations: no limitations Course Vital Signs 05/19/19 05/19/19 05/19/19 10:19 10:23 10:55 Temperature 97.6 F Pulse Rate 57 L Respiratory 16 20 Rate Blood Pressure 157/90 O2 Sat by Pulse 99 99 Oximetry 05/19/19 05/19/19 05/19/19 11:00 11:15 11:23 Temperature Pulse Rate Respiratory 20 Rate Blood Pressure 151/88 O2 Sat by Pulse 99 97 Oximetry 05/19/19 05/19/19 05/19/19 11:30 11:45 12:37 Temperature Pulse Rate Respiratory Rate Blood Pressure 144/79 144/79 O2 Sat by Pulse 95 96 96 Oximetry Medical Decision Making - Medical Decision Making 59-year-old male patient with extensive past medical history presents to ED due to chief complaint of fall with back pain. Patient reports that he was taking the garbage out, slipped on ice, fell having his right lower extremity, underneath him. He denies trauma to head or neck. Chief complaint is right lower lateral tibial pain. Denies any other complaints at this time. Patient relatively stable, afebrile. Physical exam displayed: Ecchymoses noted distal right lower extremity. Tender to palpation. Neurovascularly intact. Plain film tibia and fibula displayed mild displaced comminuted fracture of the proximal fibula and distal tibia. Plain film foot do not display acute process. Chest x-ray was suboptimal however did not display cardiomegaly. EKG is nonischemic. CBC CMP noncompressive. This was discussed with Oniel Baca [facility]-C at [facility] he declined and recommended transfer. Patient be transferred to [facility]. Case discussed with Dr Huang orthopedic surgeon who recommended sling placement. Patient placed in a posterior splint, neurovascularly intact after splint placement. Accepting physician in ED Dr. Avila. Case discussed in depth with Dr. Eng. - Lab Data Result diagrams: 05/19/19 10:47 05/19/19 10:40 Lab Results 05/19/19 05/19/19 Range/Units 10:40 10:47 WBC 8.2 (3.8-10.6) k/uL RBC 4.33 (4.30-5.90) m/uL Hgb 13.5 (13.0-17.5) gm/dL Hct 40.3 (39.0-53.0) % MCV 92.9 (80.0-100.0) fL MCH 31.2 (25.0-35.0) pg MCHC 33.6 (31.0-37.0) g/dL RDW 12.6 (11.5-15.5) % Plt Count 192 (150-450) k/uL Neutrophils % 68 % Lymphocytes % 15 % Monocytes % 6 % Eosinophils % 6 % Basophils % 1 % Neutrophils # 5.6 (1.3-7.7) k/uL Lymphocytes # 1.2 (1.0-4.8) k/uL Monocytes # 0.5 (0-1.0) k/uL Eosinophils # 0.5 (0-0.7) k/uL Basophils # 0.1 (0-0.2) k/uL Sodium 137 (137-145) mmol/L Potassium 4.4 (3.5-5.1) mmol/L Chloride 107 (98-107) mmol/L Carbon Dioxide 22 (22-30) mmol/L Anion Gap 8 mmol/L BUN 17 (9-20) mg/dL Creatinine 0.82 (0.66-1.25) mg/dL Est GFR (CKD-EPI)AfAm >90 (>60 ml/min/1.73 sqM) Est GFR (CKD-EPI)NonAf >90 (>60 ml/min/1.73 sqM) Glucose 100 H (74-99) mg/dL Calcium 9.0 (8.4-10.2) mg/dL Total Bilirubin 0.5 (0.2-1.3) mg/dL AST 27 (17-59) U/L ALT 14 (4-49) U/L Alkaline Phosphatase 96 (38-126) U/L Total Protein 6.8 (6.3-8.2) g/dL Albumin 3.7 (3.5-5.0) g/dL - EKG Data -: EKG Interpreted by Me (and Dr. Eng ) EKG Comments: Ventricular rate 55,ROMI 214, QRS 86, QT/QTC 418/399. Sinus bradycardia with first-degree AV block. Otherwise normal EKG. No concern for acute ischemia. Disposition Clinical Impression: Fracture, fibula, proximal, Fracture of distal end of tibia Disposition: OTHER INSTITUTION NOT DEFINED Condition: Serious Is patient prescribed a controlled substance at d/c from ED?: No Referrals: Huang Jessica MD [Primary Care Provider] - 1-2 days - Out of Hospital Transfer - Req. Specs Out of Hospital Transfer - Requested Specifics: Other Emergency Center ([facility])
[2019-05-19 10:58] LABS: Basophils # (A) 0.1 k/uL (0-0.2); Basophils % (A) 1 %; Eosinophils # (A) 0.5 k/uL (0-0.7); Eosinophils % (A) 6 %; HCT 40.3 % (39.0-53.0); HGB 13.5 gm/dL (13.0-17.5); Lymphocytes # (A) 1.2 k/uL (1.0-4.8); Lymphocytes % (A) 15 %; MCH 31.2 pg (25.0-35.0); MCHC 33.6 g/dL (31.0-37.0); MCV 92.9 fL (80.0-100.0); Mean Platelet Volume 6.6; Monocytes # (A) 0.5 k/uL (0-1.0); Monocytes % (A) 6 %; Neutrophils # (A) 5.6 k/uL (1.3-7.7); Neutrophils % (A) 68 %; Platelet Count 192 k/uL (150-450); RBC 4.33 m/uL (4.30-5.90); RDW 12.6 % (11.5-15.5); WBC 8.2 k/uL (3.8-10.6)
--- NOTE | 2019-05-19 11:03 | XR ---
EXAMINATION TYPE: XR chest 1V DATE OF EXAM: 05/19/2019 HISTORY: fall. REFERENCE: Previous study dated 05/11/2018. FINDINGS: The study is limited by the patient's size. The heart is mildly enlarged. The lungs appear clear. The left CP angle is obscured. I could not excl ude a left effusion. IMPRESSION: 1. SUBOPTIMAL EXAMINATION. 2. CARDIOMEGALY. 3. I COULD NOT EXCLUDE A SMALL, LEFT EFFUSION.
--- NOTE | 2019-05-19 11:06 | XR ---
EXAMINATION TYPE: XR tibia fibula RT , 3 VIEWS DATE OF EXAM ORDERED: 05/19/2019 HISTORY: fall pain. COMPARISON: None. FINDINGS: There is a moderately displaced comminuted and slightly foreshortened fracture of the dist al diaphysis of the right tibia. There is a comminuted and mildly displaced fracture of the proximal fibular diametaphysis. IMPRESSION: MILDLY DISPLACED, COMMINUTED FRACTURES OF THE PROXIMAL FIBULA AND DISTAL TIBIAL DIAPHYSIS. CODE A: INITIAL ENCOUNTER FOR CLOSED FRACTURE.
--- NOTE | 2019-05-19 11:09 | XR ---
EXAMINATION TYPE: XR foot complete RT , 2 VIEWS DATE OF EXAM ORDERED: 05/19/2019 HISTORY: fall pain. COMPARISON: Previous study dated 08/07/2017. FINDINGS: There is a mild hallux valgus deformity. There are mild hammertoe deformities of the secon d through fifth digits. There are degenerative changes in the second metatarsal row. There are both p lantar and Achilles calcaneal spurs. No acute fractures identified. IMPRESSION: 1. NO ACUTE OSSEOUS LESION. 2. DEGENERATIVE CHANGE. 3. CALCANEAL SPURS.
[2019-05-19 11:12] LABS: ALT 14 U/L (4-49); AST 27 U/L (17-59); African American GFR (CKD) >90 (>60 ml/min/1.73 sqM); Albumin 3.7 g/dL (3.5-5.0); Alkaline Phosphatase 96 U/L (38-126); Anion Gap 8 mmol/L; Blood Urea Nitrogen 17 mg/dL (9-20); Carbon Dioxide 22 mmol/L (22-30); Chloride 107 mmol/L (98-107); Glucose 100 mg/dL (74-99); Non-African American GFR(CKD) >90 (>60 ml/min/1.73 sqM); Potassium 4.4 mmol/L (3.5-5.1); Sodium 137 mmol/L (137-145); Total Bilirubin 0.5 mg/dL (0.2-1.3); Total Protein 6.8 g/dL (6.3-8.2)
[2019-05-19 11:47] VITALS: RESP 20
[2019-05-19 11:48] VITALS: BP 144/79
[2019-05-19] MEDS ORDERED: HYDROmorphone 0.5 MG/0.5 ML SYRINGE IVP STA (12:01)
== END 2019-05-19 12:53 | disposition other institution (70) ==
LOC: EC 10:02
DX: S82.831A Other fracture of upper and lower end of right fibula, initial encounter for closed fracture (principal); S82.301A Unspecified fracture of lower end of right tibia, initial encounter for closed fracture; I25.10 Atherosclerotic heart disease of native coronary artery without angina pectoris; I11.0 Hypertensive heart disease with heart failure; I50.9 Heart failure, unspecified; J44.9 Chronic obstructive pulmonary disease, unspecified; E78.5 Hyperlipidemia, unspecified; I25.2 Old myocardial infarction; G43.909 Migraine, unspecified, not intractable, without status migrainosus; M19.90 Unspecified osteoarthritis, unspecified site; G47.30 Sleep apnea, unspecified; Z99.89 Dependence on other enabling machines and devices; Z86.718 Personal history of other venous thrombosis and embolism; Z95.818 Presence of other cardiac implants and grafts; Z95.5 Presence of coronary angioplasty implant and graft; Z79.82 Long term (current) use of aspirin; Z79.02 Long term (current) use of antithrombotics/antiplatelets; Z79.891 Long term (current) use of opiate analgesic; Z79.1 Long term (current) use of non-steroidal anti-inflammatories (NSAID); Z79.899 Other long term (current) drug therapy; Z91.048 Other nonmedicinal substance allergy status; Z53.29 Procedure and treatment not carried out because of patient's decision for other reasons; W00.0XXA Fall on same level due to ice and snow, initial encounter
CPT/HCPCS: 36415; 93005; 80053; 85025; 73590; 73630; 71045; 99285; 29515; 96374; 96375; J2270; J1170